=== PATIENT | female | born 1945 | race Caucasian/White ===

== ENCOUNTER → 2016-08-25 | Outpatient (REF) | payer MEDICARE, OTHER ==
[~2016-08-25] MED LIST: /AMLO25TA PO; /CLON2TA PO; ASPI81TA85 PO; ATEN50TA2 PO; CLOP75TA2 PO; CODCAP PO; DIOV40TA PO; IMDU30TA PO; LABE10TAB PO; LIPI20TA PO; LOPR50TA PO; TOPR50TA PO; TYLE325T5 PO; ZEST10TA4 PO; [UNRECOGNIZED DRUG - CODE] PO
[2016-08-25 12:21] LABS: BASO % 0.7 % (0.0-1.0); EOS # 0.1 K/mm3 (0.0-0.50); LARGE UNSTAINED CELL # 0.1 K/mm3 (0.0-0.4); LARGE UNSTAINED CELL % 1.6 % (0.0-4.0); LYMPH # 1.7 K/mm3 (1.5-4.5); LYMPH % 24.1 % (24.0-44.0); MEAN CORPUSCULAR HEMOGLOBIN 29.3 pg (27.0-33.0); MEAN CORPUSCULAR HGB CONC 33.7 g/dl (32.0-36.5); MEAN CORPUSCULAR VOLUME 87.1 fl (80.0-96.0); MONO # 0.3 K/mm3 (0.0-0.8); MONO % 4.7 % (0.0-5.0); NEUTROPHILS # 4.4 K/mm3 (1.8-7.7); NEUTROPHILS % 66.9 % (36.0-66.0); PLATELET COUNT, AUTOMATED 261 k/mm3 (150-450); RED CELL DISTRIBUTION WIDTH 13.4 % (11.5-14.5); WHITE BLOOD COUNT 6.6 K/mm3 (4.0-10.0)
[2016-08-25 12:42] LABS: ALBUMIN 3.9 GM/DL (3.2-5.2); ALBUMIN/GLOBULIN RATIO 1.15 (1.00-1.93); BILIRUBIN,TOTAL 0.7 MG/DL (0.2-1.0); CALCIUM LEVEL 8.8 MG/DL (8.8-10.2); CREATININE FOR GFR 1.01 MG/DL (0.55-1.02); GLOMERULAR FILTRATION RATE 57.7 (>39); POTASSIUM SERUM 4.2 MEQ/L (3.5-5.1); TOTAL PROTEIN 7.3 GM/DL (6.4-8.2)
== END ==
LOC: M LABDRAW1 11:08
PROVIDERS: ATTEND Family Medicine
DX: I10 Essential (primary) hypertension (principal)

== ENCOUNTER → 2017-03-16 | Outpatient (REF) | payer MEDICARE, OTHER ==
[2017-03-16 11:17] LABS: ALBUMIN 3.8 GM/DL (3.2-5.2); ALBUMIN/GLOBULIN RATIO 1.12 (1.00-1.93); BILIRUBIN,DIRECT 0.2 MG/DL (0.0-0.2); BILIRUBIN,TOTAL 0.9 MG/DL (0.2-1.0); TOTAL PROTEIN 7.2 GM/DL (6.4-8.2)
== END ==
LOC: M LABDRAW1 10:26
PROVIDERS: ATTEND Family Medicine
DX: E78.2 Mixed hyperlipidemia (principal)

== ENCOUNTER → 2017-06-06 | Outpatient (REF) | payer MEDICARE, OTHER ==
[2017-06-06 12:25] LABS: ALBUMIN/GLOBULIN RATIO 1.33 (1.00-1.93); ALKALINE PHOSPHATASE 88 U/L (45-117); ALT/SGPT 23 U/L (12-78); AST/SGOT 18 U/L (7-37); BILIRUBIN,DIRECT 0.2 MG/DL (0.0-0.2); BILIRUBIN,TOTAL 0.9 MG/DL (0.2-1.0); CHOLESTEROL LEVEL 240 MG/DL (<200); CHOLESTEROL RISK RATIO 5.106 (<5); HDL CHOLESTEROL 47 MG/DL (>40); NON-HDL-C 193 MG/DL; TRIGLYCERIDES LEVEL 165 MG/DL (<150)
== END ==
LOC: M LABDRAW1 11:51
DX: E78.2 Mixed hyperlipidemia (principal)
CPT/HCPCS: 80076

== ENCOUNTER 2017-10-16 21:41 | Inpatient (IN) | payer MEDICARE, OTHER ==
[2017-10-16 22:09] LABS: BASO % 0.3 % (0.0-1.0); EOS # 0.1 10^3/uL (0.0-0.50); EOS % 0.8 % (0.0-3.0); HEMOGLOBIN 14.9 g/dl (12.0-15.5); IMMATURE GRANULOCYTE % 0.4 % (0-3.0); LYMPH # 2.7 10^3/uL (1.5-4.5); LYMPH % 23.9 % (24.0-44.0); MEAN CORPUSCULAR HEMOGLOBIN 28.9 pg (27.0-33.0); MEAN CORPUSCULAR HGB CONC 33.9 g/dl (32.0-36.5); MEAN CORPUSCULAR VOLUME 85.3 fl (80.0-96.0); MONO # 0.5 10^3/uL (0.0-0.8); MONO % 4.6 % (0.0-5.0); PLATELET COUNT, AUTOMATED 295 10^3/uL (150-450); RED BLOOD COUNT 5.16 10^6/uL (4.00-5.40); RED CELL DISTRIBUTION WIDTH 13.4 % (11.5-14.5); WHITE BLOOD COUNT 11.4 10^3/uL (4.0-10.0)
[2017-10-16] MEDS: LABETALOL HCL 100 MG/20 ML VIAL IV ×2 (22:33→23:41)
[2017-10-16 22:34] LABS: ANION GAP 7 MEQ/L (8-16); BLOOD UREA NITROGEN 19 MG/DL (7-18); CALCIUM LEVEL 9.1 MG/DL (8.8-10.2); CARBON DIOXIDE LEVEL 29 MEQ/L (21-32); CHLORIDE LEVEL 106 MEQ/L (98-107); CK-MB VALUE MASS 1.7 NG/ML (<3.6); CPK CREATINE PHOSPHOKINASE 85 U/L (26-192); CREATININE FOR GFR 1.13 MG/DL (0.55-1.30); GLOMERULAR FILTRATION RATE 50.5 (>39); GLUCOSE, FASTING 141 MG/DL (70-100); POTASSIUM SERUM 3.8 MEQ/L (3.5-5.1); SODIUM LEVEL 142 MEQ/L (136-145); TROPONIN I < 0.02 NG/ML (< 0.10)
[2017-10-16 22:43] LABS: INR 0.83; PROTHROMBIN TIME 11.5 SECONDS (12.1-14.4)
[2017-10-16 22:44] LABS: PARTIAL THROMBOPLASTIN TIME 23.6 SECONDS (25.4-37.6)
[2017-10-16] MEDS: NITROGLYCERIN 2% OINT 1 GM *U/D* PKT TOP (22:45)
[2017-10-16] MEDS ORDERED: ACETAMINOPHEN 325 MG TAB As Ordered (22:46)
[2017-10-16 22:49] LABS: ALBUMIN 4.2 GM/DL (3.2-5.2); ALBUMIN/GLOBULIN RATIO 1.24 (1.00-1.93); ALKALINE PHOSPHATASE 100 U/L (45-117); ALT/SGPT 37 U/L (12-78); AST/SGOT 26 U/L (7-37); BILIRUBIN,DIRECT 0.1 MG/DL (0.0-0.2); BILIRUBIN,TOTAL 0.4 MG/DL (0.2-1.0); TOTAL PROTEIN 7.6 GM/DL (6.4-8.2)
[2017-10-16] MEDS: MORPHINE 2 MG/ML 1ML SYRINGE (J2270) IV (23:38)
[2017-10-16] MEDS: ONDANSETRON 4MG/2ML VIAL (J2405) IV (23:39)
[2017-10-17] MEDS ORDERED: ISOVUE-370 76% 100ML VIAL (Q9967) As Ordered (00:04)
[2017-10-17] MEDS: MORPHINE 4 MG/ML 1ML VIAL/SYRINGE (J2270) IV ×2 (00:15→06:00)
[2017-10-17] MEDS: ASPIRIN 81 MG CHEW TABLET PO ×2 (01:43→03:45)
[2017-10-17 01:46] LABS: CK-MB VALUE MASS 1.8 NG/ML (<3.6); CPK CREATINE PHOSPHOKINASE 77 U/L (26-192); MB/CK RELATIVE INDEX 2.33 (< OR =4); TROPONIN I 0.02 NG/ML (< 0.10)
[2017-10-17] MEDS: hydrALAZINE INJ 20 MG/ML VIAL IV (02:26)
[2017-10-17] MEDS: niCARdipine IV 40 MG in APPROPRIATE DILUENT 1 EA IV (05:06)
[2017-10-17 05:31] LABS: HEMATOCRIT 42.1 % (36.0-47.0); HEMOGLOBIN 14.6 g/dl (12.0-15.5); MEAN CORPUSCULAR HGB CONC 34.7 g/dl (32.0-36.5); MEAN CORPUSCULAR VOLUME 83.5 fl (80.0-96.0); PLATELET COUNT, AUTOMATED 284 10^3/uL (150-450); RED BLOOD COUNT 5.04 10^6/uL (4.00-5.40); RED CELL DISTRIBUTION WIDTH 13.4 % (11.5-14.5); WHITE BLOOD COUNT 17.6 10^3/uL (4.0-10.0)
[2017-10-17] MEDS: DILUENT IV (05:40)
[2017-10-17] MEDS: NITROPRUSSIDE SODIUM IV (05:40)
[2017-10-17 05:58] LABS: ALBUMIN 4.1 GM/DL (3.2-5.2); ALBUMIN/GLOBULIN RATIO 1.17 (1.00-1.93); ALKALINE PHOSPHATASE 100 U/L (45-117); ALT/SGPT 35 U/L (12-78); ANION GAP 13 MEQ/L (8-16); AST/SGOT 26 U/L (7-37); BILIRUBIN,TOTAL 0.5 MG/DL (0.2-1.0); BLOOD UREA NITROGEN 18 MG/DL (7-18); CALCIUM LEVEL 8.3 MG/DL (8.8-10.2); CARBON DIOXIDE LEVEL 22 MEQ/L (21-32); CHLORIDE LEVEL 105 MEQ/L (98-107); CREATININE FOR GFR 1.08 MG/DL (0.55-1.30); GLOMERULAR FILTRATION RATE 53.2 (>39); GLUCOSE, FASTING 194 MG/DL (70-100); POTASSIUM SERUM 3.3 MEQ/L (3.5-5.1); SODIUM LEVEL 140 MEQ/L (136-145); TOTAL PROTEIN 7.6 GM/DL (6.4-8.2)
[2017-10-17] MEDS: cloNIDine 0.1 MG TAB PO ×2 (06:00→11:15)
[2017-10-17] MEDS: ALPRAZolam 0.5 MG TAB PO (06:12)
[2017-10-17 07:57] LABS: KETONE, URINE AUTO RFX TRACE mg/dL (NEGATIVE); LEUKOCYTE ESTERASE UR AUTO RFX NEGATIVE (NEGATIVE); MUCUS, URINE RFX SMALL (NEGATIVE); NITRITE, URINE AUTO RFX NEGATIVE (NEGATIVE); RBC, URINE AUTO RFX 2 /HPF (0-3); SPECIFIC GRAVITY UR AUTO RFX 1.011 (1.002-1.035); SQUAM EPITHELIAL CELL UR AURFX 0 /HPF (0-6); WBC, URINE AUTO RFX 3 /HPF (0-3)
[2017-10-17] MEDS ORDERED: CARVedilol 6.25 MG TAB PO (09:00)
[2017-10-17] MEDS: LOSARTAN 50 MG TAB PO ×2 (09:00→09:24)
[2017-10-17] MEDS ORDERED: amLODIPine 10 MG TAB PO (09:00)
[2017-10-17] MEDS: METOPROLOL SUCC (TopROL XL) 50MG **XL** TAB PO (09:24)
[2017-10-17] MEDS: PANTOPRAZOLE 40MG INJ (PROTONIX) (C9113) IV ×2 (09:24→20:29)
[2017-10-17] MEDS: TELMISARTAN 20 MG TAB PO ×2 (11:10→20:29)
[2017-10-17] MEDS: POTASSIUM CHLORIDE 10 MEQ SR TABLET PO (11:15)
[2017-10-17] MEDS: SUCRALFATE 1 GM TAB PO ×3 (11:15→20:29)
[2017-10-17] MEDS: **hydrALAZINE HCL** 25 MG TAB PO ×2 (14:27→21:36)
[2017-10-17] MEDS: NIFEdipine 30 MG XL TAB PO (19:57)
[2017-10-17] MEDS: KETOROLAC 30 MG/ML VIAL (J1885) IV (19:58)
[2017-10-17] MEDS: SIMVASTATIN 20 MG TAB PO (20:29)
[2017-10-17] MEDS: CARVedilol 12.5 MG TAB PO (20:29)
[2017-10-18] MEDS ORDERED: niCARdipine IV 40 MG in APPROPRIATE DILUENT 1 EA IV (01:45)
[2017-10-18] MEDS: **hydrALAZINE HCL** 25 MG TAB PO ×3 (05:55→11:09)
[2017-10-18] MEDS ORDERED: PILL CRUSHER/CUTTER 1 EACH XX (06:45)
[2017-10-18] MEDS: PANTOPRAZOLE 40MG INJ (PROTONIX) (C9113) IV ×2 (08:07→22:40)
[2017-10-18] MEDS: KETOROLAC 30 MG/ML VIAL (J1885) IV (08:07)
[2017-10-18] MEDS: SUCRALFATE 1 GM TAB PO ×4 (08:08→21:00)
[2017-10-18] MEDS: CARVedilol 12.5 MG TAB PO (08:08)
[2017-10-18] MEDS: TELMISARTAN 20 MG TAB PO (08:09)
[2017-10-18] MEDS: APIXABAN 5 MG TAB (ELIQUIS) PO (09:00)
[2017-10-18] MEDS ORDERED: **hydrALAZINE HCL** 25 MG TAB PO ×2 (09:00)
[2017-10-18 09:01] LABS: HEMATOCRIT 40.2 % (36.0-47.0); MEAN CORPUSCULAR HEMOGLOBIN 29.1 pg (27.0-33.0); MEAN CORPUSCULAR HGB CONC 34.8 g/dl (32.0-36.5); MEAN CORPUSCULAR VOLUME 83.6 fl (80.0-96.0); PLATELET COUNT, AUTOMATED 279 10^3/uL (150-450); RED BLOOD COUNT 4.81 10^6/uL (4.00-5.40); RED CELL DISTRIBUTION WIDTH 13.7 % (11.5-14.5); WHITE BLOOD COUNT 25.3 10^3/uL (4.0-10.0)
[2017-10-18 09:05] LABS: ADD MANUAL DIFFER YES; DIFF SLIDE NUMBER 146; POSITIVE DIFF POS FLAG; POSITIVE MORPH POS FLAG
[2017-10-18 09:26] LABS: ALBUMIN 3.6 GM/DL (3.2-5.2); ALKALINE PHOSPHATASE 89 U/L (45-117); ALT/SGPT 64 U/L (12-78); ANION GAP 11 MEQ/L (8-16); AST/SGOT 58 U/L (7-37); BLOOD UREA NITROGEN 27 MG/DL (7-18); C REACTIVE PROTEIN QUANTITATIV 6.57 MG/DL (0.00-0.30); CALCIUM LEVEL 8.4 MG/DL (8.8-10.2); CARBON DIOXIDE LEVEL 19 MEQ/L (21-32); CHLORIDE LEVEL 106 MEQ/L (98-107); CPK CREATINE PHOSPHOKINASE 82 U/L (26-192); CREATININE FOR GFR 1.08 MG/DL (0.55-1.30); GLOMERULAR FILTRATION RATE 53.2 (>39); GLUCOSE, FASTING 156 MG/DL (70-100); MB/CK RELATIVE INDEX 2.43 (< OR =4); POTASSIUM SERUM 3.5 MEQ/L (3.5-5.1); SODIUM LEVEL 136 MEQ/L (136-145); TOTAL PROTEIN 7.2 GM/DL (6.4-8.2); TROPONIN I < 0.02 NG/ML (< 0.10)
[2017-10-18 09:40] LABS: LACTIC ACID SEPSIS PROTOCOL 2.5 MMOL/L (0.4-2.0)
[2017-10-18 09:50] LABS: ERYTHROCYTE SEDIMENTATION RATE 5 mm/hr (0-30)
[2017-10-18 09:59] LABS: BANDS 7 % (< 11); LYMPHOCYTES 9 % (16-52); MONOCYTES 7 % (0-8); NEUTROPHILS 77 % (35-75); PLATELET ESTIMATE NORMAL (NORMAL)
[2017-10-18 10:00] LABS: ANISOCYTOSIS 1+
[2017-10-18 10:03] LABS: BILIRUBIN,TOTAL 1.7 MG/DL (0.2-1.0)
[2017-10-18] MEDS: CIPROFLOXACIN 400 MG in APPROPRIATE DILUENT 1 EA IV (10:16)
[2017-10-18] MEDS: NS 0.45% 1,000 ML IV (10:18)
[2017-10-18] MEDS: METOPROLOL TART 25 MG TABLET PO (11:10)
[2017-10-18] MEDS: metroNIDAZOLE 500 MG in APPROPRIATE DILUENT 1 EA IV (11:40)
[2017-10-18 13:47] LABS: MAGNESIUM LEVEL 2.1 MG/DL (1.8-2.4)
[2017-10-18] MEDS: NS 1,000 ML IV ×3 (14:15→22:42)
[2017-10-18] MEDS: MEROPENEM INJ 1 GM in APPROPRIATE DILUENT 1 EA IV ×2 (15:46→23:27)
[2017-10-18] MEDS: MORPHINE 4 MG/ML 1ML VIAL/SYRINGE (J2270) IV (15:47)
[2017-10-18 16:00] LABS: ANION GAP 9 MEQ/L (8-16); BLOOD UREA NITROGEN 34 MG/DL (7-18); CALCIUM LEVEL 7.3 MG/DL (8.8-10.2); CARBON DIOXIDE LEVEL 19 MEQ/L (21-32); CHLORIDE LEVEL 107 MEQ/L (98-107); GLOMERULAR FILTRATION RATE 39.5 (>39); GLUCOSE, FASTING 94 MG/DL (70-100); POTASSIUM SERUM 3.9 MEQ/L (3.5-5.1); SODIUM LEVEL 135 MEQ/L (136-145)
[2017-10-18] MEDS ORDERED: MEROPENEM INJ 500 MG in APPROPRIATE DILUENT 1 EA IV (16:00)
[2017-10-18] MEDS: READI-CAT 2 PO ×2 (16:29→16:59)
[2017-10-18] MEDS: NS 2,000 ML IV (16:49)
[2017-10-18] MEDS: diphenhydrAMINE INJ 50MG/ML VIAL (J1200) IV (17:37)
[2017-10-18] MEDS: ACETAMINOPHEN TAB 650MG DOSE (2X325MG) PO (17:37)
[2017-10-18] MEDS: dexameTHASONE 20 MG/5 ML VIAL (J1100) IV (17:37)
[2017-10-18] MEDS ORDERED: ISOVUE-370 76% 100ML VIAL (Q9967) As Ordered (17:55)
[2017-10-18] MEDS ORDERED: GLUCOSE 4 GM CHEW TABLET PO (18:30)
[2017-10-18] MEDS ORDERED: DEXTROSE 50% 50 ML SYRINGE IV (18:30)
[2017-10-18] MEDS ORDERED: GLUCAGON FOR INJ 1 MG VIAL (J1610) SC (18:30)
[2017-10-18] MEDS ORDERED: NS 1,000 ML IV (18:30)
[2017-10-18] MEDS ORDERED: PHENYLEPHRINE INJ 10MG/ML VIAL (J2370) As Ordered (19:18)
[2017-10-18] MEDS ORDERED: LIDOCAINE 2% INJ 100 MG/5 ML SDV (FOR ANES.) As Ordered (19:18)
[2017-10-18] MEDS ORDERED: ROCURONIUM BROMIDE 50 MG/5 ML VIAL As Ordered (19:18)
[2017-10-18] MEDS ORDERED: PROPOFOL 200 MG/20 ML VIAL As Ordered (19:18)
[2017-10-18] MEDS ORDERED: SUCCINYLCHOLINE 100 MG/5 ML SYRINGE (J0330) As Ordered (19:19)
[2017-10-18] MEDS ORDERED: fentaNYL 100 MCG/2 ML INJECTION (J3010) As Ordered ×2 (19:23→21:29)
[2017-10-18 19:33] LABS: LACTIC ACID SEPSIS PROTOCOL 1.3 MMOL/L (0.4-2.0); NT-PRO BNP 4397 PG/ML (<125)
[2017-10-18] MEDS ORDERED: GLYCOPYRROLATE INJ 0.2 MG/ML 2 ML VIAL As Ordered ×2 (20:49)
[2017-10-18] MEDS ORDERED: NEOSTIGMINE 10 MG/10 ML VIAL (J2710) As Ordered (20:49)
[2017-10-18] MEDS ORDERED: ONDANSETRON 4MG/2ML VIAL (J2405) As Ordered (20:49)
[2017-10-18] MEDS ORDERED: dexameTHASONE 4 MG/ML 1ML VIAL (J1100) As Ordered (20:49)
[2017-10-18] MEDS: BUPIVACAINE HCL 0.25% 30 ML VIAL As Ordered (20:55)
[2017-10-18] MEDS: BUPIVACAINE LIPOSOME/PF 1.3% 20 ML VIAL (13.3MG/ML)(EXPAREL) As Ordered (20:55)
[2017-10-18] MEDS ORDERED: ENOXAPARIN 40 MG/0.4 ML SYRINGE (J1650) SC (21:00)
[2017-10-18] MEDS: SIMVASTATIN 20 MG TAB PO (21:00)
[2017-10-18] MEDS ORDERED: PROPOFOL 1,000 MG/100 ML VIAL As Ordered (21:21)
[2017-10-18] MEDS: fentaNYL 100 MCG/2 ML INJECTION (J3010) IV ×2 (21:31→21:36)
[2017-10-18] MEDS: LR 1,000 ML IV (21:45)
[2017-10-18] MEDS ORDERED: MORPHINE 10 MG/ML 1ML VIAL (J2270) IV (21:45)
[2017-10-18] MEDS ORDERED: METOCLOPRAMIDE INJ 10MG/2ML VIAL (J2765) IV (21:45)
[2017-10-18] MEDS ORDERED: ONDANSETRON 4MG/2ML VIAL (J2405) IV (21:45)
[2017-10-18] MEDS ORDERED: PROPOFOL 1,000 MG/100 ML VIAL IV (21:45)
[2017-10-18] MEDS ORDERED: MIDAZOLAM INJ 2 MG/2 ML VIAL (J2250) IV (22:30)
[2017-10-18] MEDS: PROPOFOL 1,000 MG in APPROPRIATE DILUENT 1 EA IV (22:43)
[2017-10-18 23:19] LABS: ABG BASE EXCESS -6.6 (-2.0-2.0); ABG HCO3 18.5 MEQ/L (22.0-26.0); ABG O2 SATURATION 97.8 % (95.0-99.0); ABG PARTIAL PRESSURE CO2 35.7 mmHg (35.0-45.0); ABG STANDARD HCO3 19.1 MEQ/L (22.0-26.0); ABG TOTAL CO2 19.6 MEQ/L (23.0-31.0); ABG pH (ARTERIAL) 7.332 UNITS (7.350-7.450)
[2017-10-18] MEDS: CHLORHEXIDINE ORAL RINSE 0.12%/15ML 120ML BOTTLE MT (23:27)
[2017-10-19 01:01] LABS: ALBUMIN 2.4 GM/DL (3.2-5.2); ALBUMIN/GLOBULIN RATIO 0.77 (1.00-1.93); ALKALINE PHOSPHATASE 61 U/L (45-117); ALT/SGPT 40 U/L (12-78); ANION GAP 8 MEQ/L (8-16); AST/SGOT 30 U/L (7-37); BILIRUBIN,TOTAL 1.4 MG/DL (0.2-1.0); BLOOD UREA NITROGEN 31 MG/DL (7-18); CALCIUM LEVEL 7.1 MG/DL (8.8-10.2); CARBON DIOXIDE LEVEL 20 MEQ/L (21-32); CHLORIDE LEVEL 107 MEQ/L (98-107); CK-MB VALUE MASS 4.2 NG/ML (<3.6); CPK CREATINE PHOSPHOKINASE 150 U/L (26-192); CREATININE FOR GFR 1.28 MG/DL (0.55-1.30); GLOMERULAR FILTRATION RATE 43.8 (>39); GLUCOSE, FASTING 131 MG/DL (70-100); POTASSIUM SERUM 3.7 MEQ/L (3.5-5.1); SODIUM LEVEL 135 MEQ/L (136-145); TOTAL PROTEIN 5.5 GM/DL (6.4-8.2); TROPONIN I 0.03 NG/ML (< 0.10)
[2017-10-19 01:01] LABS: NT-PRO BNP 4154 PG/ML (<125)
[2017-10-19 01:05] LABS: ERYTHROCYTE SEDIMENTATION RATE 13 mm/hr (0-30)
[2017-10-19] MEDS: PROPOFOL 1,000 MG in APPROPRIATE DILUENT 1 EA IV (04:04)
[2017-10-19] MEDS: NS 1,000 ML IV ×2 (04:51→10:56)
[2017-10-19 05:36] LABS: HEMATOCRIT 37.3 % (36.0-47.0); HEMOGLOBIN 12.6 g/dl (12.0-15.5); MEAN CORPUSCULAR HEMOGLOBIN 29.2 pg (27.0-33.0); MEAN CORPUSCULAR HGB CONC 33.8 g/dl (32.0-36.5); MEAN CORPUSCULAR VOLUME 86.3 fl (80.0-96.0); PLATELET COUNT, AUTOMATED 213 10^3/uL (150-450); RED BLOOD COUNT 4.32 10^6/uL (4.00-5.40); RED CELL DISTRIBUTION WIDTH 14.3 % (11.5-14.5); WHITE BLOOD COUNT 20.9 10^3/uL (4.0-10.0)
[2017-10-19 05:46] LABS: ADD MANUAL DIFFER YES; DIFF SLIDE NUMBER 80; POSITIVE MORPH POS FLAG
[2017-10-19 05:51] LABS: ANION GAP 9 MEQ/L (8-16); BLOOD UREA NITROGEN 26 MG/DL (7-18); CALCIUM LEVEL 7.5 MG/DL (8.8-10.2); CARBON DIOXIDE LEVEL 20 MEQ/L (21-32); CHLORIDE LEVEL 110 MEQ/L (98-107); CREATININE FOR GFR 1.16 MG/DL (0.55-1.30); GLUCOSE, FASTING 136 MG/DL (70-100); POTASSIUM SERUM 3.8 MEQ/L (3.5-5.1); SODIUM LEVEL 139 MEQ/L (136-145)
[2017-10-19] MEDS: MEROPENEM INJ 1 GM in APPROPRIATE DILUENT 1 EA IV ×3 (06:09→22:13)
[2017-10-19 06:32] LABS: BANDS 8 % (< 11); LYMPHOCYTES 4 % (16-52); MONOCYTES 2 % (0-8); NEUTROPHILS 86 % (35-75); PLATELET ESTIMATE NORMAL (NORMAL)
[2017-10-19] MEDS: SUCRALFATE 1 GM TAB PO ×4 (08:53→20:31)
[2017-10-19] MEDS: PANTOPRAZOLE 40MG INJ (PROTONIX) (C9113) IV ×2 (08:54→20:31)
[2017-10-19] MEDS: CHLORHEXIDINE ORAL RINSE 0.12%/15ML 120ML BOTTLE MT (08:54)
[2017-10-19] MEDS: HEPARIN SOD (PORCINE) 5000 UNITS/ML VIAL SQ ×2 (08:54→20:31)
[2017-10-19] MEDS: METOPROLOL 5 MG/5 ML VIAL IV ×5 (08:54→17:46)
[2017-10-19] MEDS: hydrALAZINE INJ 20 MG/ML VIAL IV ×4 (10:28→22:13)
[2017-10-19] MEDS: MORPHINE 4 MG/ML 1ML VIAL/SYRINGE (J2270) IV ×2 (12:56→18:43)
[2017-10-19] MEDS: SIMVASTATIN 20 MG TAB PO (20:31)
[2017-10-19 23:24] LABS: BEDSIDE GLUCOSE 126 MG/DL (83-110)
[2017-10-20] MEDS: METOPROLOL 5 MG/5 ML VIAL IV ×2 (00:25→05:24)
[2017-10-20] MEDS: hydrALAZINE INJ 20 MG/ML VIAL IV ×6 (02:42→22:59)
[2017-10-20 05:12] LABS: BASO % 0.1 % (0.0-1.0); HEMATOCRIT 34.8 % (36.0-47.0); IMMATURE GRANULOCYTE % 0.7 % (0-3.0); LYMPH # 0.8 10^3/uL (1.5-4.5); LYMPH % 3.7 % (24.0-44.0); MEAN CORPUSCULAR HEMOGLOBIN 29.2 pg (27.0-33.0); MEAN CORPUSCULAR HGB CONC 34.5 g/dl (32.0-36.5); MEAN CORPUSCULAR VOLUME 84.7 fl (80.0-96.0); MONO % 4.8 % (0.0-5.0); NEUTROPHILS # 19.6 10^3/uL (1.8-7.7); NEUTROPHILS % 90.7 % (36.0-66.0); PLATELET COUNT, AUTOMATED 248 10^3/uL (150-450); RED BLOOD COUNT 4.11 10^6/uL (4.00-5.40); RED CELL DISTRIBUTION WIDTH 14.6 % (11.5-14.5); WHITE BLOOD COUNT 21.7 10^3/uL (4.0-10.0)
[2017-10-20] MEDS: ACETAMINOPHEN TAB 650MG DOSE (2X325MG) PO ×5 (05:25→23:10)
[2017-10-20 05:34] LABS: ANION GAP 8 MEQ/L (8-16); BLOOD UREA NITROGEN 26 MG/DL (7-18); CALCIUM LEVEL 7.9 MG/DL (8.8-10.2); CARBON DIOXIDE LEVEL 22 MEQ/L (21-32); CHLORIDE LEVEL 113 MEQ/L (98-107); CREATININE FOR GFR 0.77 MG/DL (0.55-1.30); GLOMERULAR FILTRATION RATE > 60.0 (>39); GLUCOSE, FASTING 107 MG/DL (70-100); POTASSIUM SERUM 3.5 MEQ/L (3.5-5.1); SODIUM LEVEL 143 MEQ/L (136-145)
[2017-10-20 06:04] LABS: KETONE, URINE AUTO RFX NEGATIVE (NEGATIVE); LEUKOCYTE ESTERASE UR AUTO RFX NEGATIVE (NEGATIVE); MUCUS, URINE RFX SMALL (NEGATIVE); NITRITE, URINE AUTO RFX NEGATIVE (NEGATIVE); RBC, URINE AUTO RFX 16 /HPF (0-3); SPECIFIC GRAVITY UR AUTO RFX 1.019 (1.002-1.035); SQUAM EPITHELIAL CELL UR AURFX 0 /HPF (0-6); WBC, URINE AUTO RFX 2 /HPF (0-3)
[2017-10-20] MEDS: MEROPENEM INJ 1 GM in APPROPRIATE DILUENT 1 EA IV ×3 (06:28→22:59)
[2017-10-20] MEDS: ATENOLOL 25 MG TAB PO ×2 (08:20→12:22)
[2017-10-20] MEDS: HEPARIN SOD (PORCINE) 5000 UNITS/ML VIAL SQ ×2 (08:21→20:02)
[2017-10-20] MEDS: PANTOPRAZOLE 40MG INJ (PROTONIX) (C9113) IV ×2 (08:21→20:02)
[2017-10-20] MEDS: SUCRALFATE 1 GM TAB PO ×4 (08:21→20:01)
[2017-10-20] MEDS: ALVIMOPAN 12 MG CAPSULE (ENTEREG) PO ×2 (09:24→20:01)
[2017-10-20] MEDS: NS 1,000 ML IV (09:25)
[2017-10-20] MEDS: SIMVASTATIN 20 MG TAB PO (20:01)
[2017-10-20] MEDS: SENNA 8.6 MG TAB (SENOKOT) PO (22:58)
[2017-10-20] MEDS: CHLORASEPTIC SPRAY MT (22:58)
[2017-10-20] MEDS: DOCUSATE SOD LIQ 100MG/10ML UDC GT (22:58)
[2017-10-20] MEDS: NAPROXEN 250 MG TAB PO (22:59)
[2017-10-21] MEDS: hydrALAZINE INJ 20 MG/ML VIAL IV ×6 (04:01→22:46)
[2017-10-21 04:50] LABS: BASO % 0.1 % (0.0-1.0); EOS % 0.2 % (0.0-3.0); HEMATOCRIT 34.5 % (36.0-47.0); HEMOGLOBIN 11.9 g/dl (12.0-15.5); IMMATURE GRANULOCYTE % 0.7 % (0-3.0); LYMPH # 1.7 10^3/uL (1.5-4.5); LYMPH % 13.4 % (24.0-44.0); MEAN CORPUSCULAR HEMOGLOBIN 29.1 pg (27.0-33.0); MEAN CORPUSCULAR HGB CONC 34.5 g/dl (32.0-36.5); MEAN CORPUSCULAR VOLUME 84.4 fl (80.0-96.0); MONO # 0.8 10^3/uL (0.0-0.8); NEUTROPHILS # 10.1 10^3/uL (1.8-7.7); NEUTROPHILS % 79.6 % (36.0-66.0); PLATELET COUNT, AUTOMATED 265 10^3/uL (150-450); RED BLOOD COUNT 4.09 10^6/uL (4.00-5.40); RED CELL DISTRIBUTION WIDTH 14.4 % (11.5-14.5); WHITE BLOOD COUNT 12.6 10^3/uL (4.0-10.0)
[2017-10-21 05:22] LABS: ANION GAP 9 MEQ/L (8-16); BLOOD UREA NITROGEN 27 MG/DL (7-18); CALCIUM LEVEL 7.7 MG/DL (8.8-10.2); CARBON DIOXIDE LEVEL 22 MEQ/L (21-32); CHLORIDE LEVEL 112 MEQ/L (98-107); CREATININE FOR GFR 0.79 MG/DL (0.55-1.30); GLOMERULAR FILTRATION RATE > 60.0 (>39); GLUCOSE, FASTING 90 MG/DL (70-100); POTASSIUM SERUM 3.4 MEQ/L (3.5-5.1); SODIUM LEVEL 143 MEQ/L (136-145)
[2017-10-21] MEDS: MEROPENEM INJ 1 GM in APPROPRIATE DILUENT 1 EA IV ×3 (06:06→22:49)
[2017-10-21] MEDS: PANTOPRAZOLE 40MG INJ (PROTONIX) (C9113) IV ×2 (08:16→20:37)
[2017-10-21] MEDS: HEPARIN SOD (PORCINE) 5000 UNITS/ML VIAL SQ ×2 (08:16→20:37)
[2017-10-21] MEDS: ATENOLOL 50 MG TAB PO (08:17)
[2017-10-21] MEDS: SUCRALFATE 1 GM TAB PO ×4 (08:17→20:36)
[2017-10-21] MEDS: POTASSIUM CHLORIDE 10 MEQ SR TABLET PO (08:18)
[2017-10-21] MEDS: ALVIMOPAN 12 MG CAPSULE (ENTEREG) PO ×2 (08:19→20:36)
[2017-10-21] MEDS: CHLORASEPTIC SPRAY MT ×2 (08:21→17:39)
[2017-10-21] MEDS ORDERED: ATENOLOL 25 MG TAB PO (09:00)
[2017-10-21 09:24] LABS: NT-PRO BNP 7788 PG/ML (<125)
[2017-10-21] MEDS: FUROSEMIDE 20 MG/2 ML VIAL (J1940) IV (10:20)
[2017-10-21] MEDS: ATENOLOL 25 MG TAB PO (10:20)
[2017-10-21] MEDS: KCL 10MEQ IN D5/0.45NS 1000ML 1,000 ML IV (10:21)
[2017-10-21 17:15] LABS: BEDSIDE GLUCOSE 91 MG/DL (83-110)
[2017-10-21] MEDS: ALPRAZolam 0.5 MG TAB PO (20:36)
[2017-10-21] MEDS: SIMVASTATIN 20 MG TAB PO (20:37)
[2017-10-21] MEDS: DOCUSATE SOD LIQ 100MG/10ML UDC GT (20:37)
[2017-10-21] MEDS: ACETAMINOPHEN TAB 650MG DOSE (2X325MG) PO (20:37)
[2017-10-21] MEDS: SENNA 8.6 MG TAB (SENOKOT) PO (20:37)
[2017-10-22] MEDS: hydrALAZINE INJ 20 MG/ML VIAL IV ×7 (01:44→23:00)
[2017-10-22 04:40] LABS: BASO % 0.3 % (0.0-1.0); EOS # 0.2 10^3/uL (0.0-0.50); EOS % 2.3 % (0.0-3.0); IMMATURE GRANULOCYTE % 2.5 % (0-3.0); LYMPH # 1.4 10^3/uL (1.5-4.5); LYMPH % 17.1 % (24.0-44.0); MEAN CORPUSCULAR HEMOGLOBIN 28.6 pg (27.0-33.0); MEAN CORPUSCULAR HGB CONC 34.3 g/dl (32.0-36.5); MEAN CORPUSCULAR VOLUME 83.5 fl (80.0-96.0); MONO # 0.8 10^3/uL (0.0-0.8); MONO % 10.2 % (0.0-5.0); NEUTROPHILS # 5.4 10^3/uL (1.8-7.7); NEUTROPHILS % 67.6 % (36.0-66.0); PLATELET COUNT, AUTOMATED 266 10^3/uL (150-450); RED BLOOD COUNT 4.19 10^6/uL (4.00-5.40); RED CELL DISTRIBUTION WIDTH 14.1 % (11.5-14.5)
[2017-10-22 04:59] LABS: ANION GAP 8 MEQ/L (8-16); BLOOD UREA NITROGEN 21 MG/DL (7-18); CALCIUM LEVEL 7.7 MG/DL (8.8-10.2); CARBON DIOXIDE LEVEL 24 MEQ/L (21-32); CHLORIDE LEVEL 109 MEQ/L (98-107); CREATININE FOR GFR 0.62 MG/DL (0.55-1.30); GLOMERULAR FILTRATION RATE > 60.0 (>39); GLUCOSE, FASTING 103 MG/DL (70-100); POTASSIUM SERUM 3.3 MEQ/L (3.5-5.1); SODIUM LEVEL 141 MEQ/L (136-145)
[2017-10-22] MEDS: MEROPENEM INJ 1 GM in APPROPRIATE DILUENT 1 EA IV ×3 (06:12→23:00)
[2017-10-22 08:07] LABS: MAGNESIUM LEVEL 2.1 MG/DL (1.8-2.4)
[2017-10-22] MEDS: POTASSIUM CHLORIDE 10 MEQ SR TABLET PO (08:50)
[2017-10-22] MEDS: HEPARIN SOD (PORCINE) 5000 UNITS/ML VIAL SQ (08:50)
[2017-10-22] MEDS: PANTOPRAZOLE 40MG INJ (PROTONIX) (C9113) IV ×2 (08:50→20:19)
[2017-10-22] MEDS: ATENOLOL 25 MG TAB PO (08:51)
[2017-10-22] MEDS: SUCRALFATE 1 GM TAB PO ×4 (08:51→20:19)
[2017-10-22] MEDS: ALVIMOPAN 12 MG CAPSULE (ENTEREG) PO ×2 (08:51→20:19)
[2017-10-22] MEDS: ISOSORBIDE DIN. (ISORDIL) 30 MG TAB PO ×2 (08:51→20:19)
[2017-10-22] MEDS: KCL 10MEQ IN D5/0.45NS 1000ML 1,000 ML IV (08:54)
[2017-10-22] MEDS: ACETAMINOPHEN TAB 650MG DOSE (2X325MG) PO ×2 (12:30→18:08)
[2017-10-22] MEDS: HEPARIN SOD (PORCINE) 5000 UNITS/ML VIAL IV ×2 (14:00→21:36)
[2017-10-22 14:22] LABS: PARTIAL THROMBOPLASTIN TIME 25.9 SECONDS (25.4-37.6)
[2017-10-22 14:34] LABS: LACTIC ACID SEPSIS PROTOCOL 1.3 MMOL/L (0.4-2.0)
[2017-10-22] MEDS: HEPARIN DRIP 25,000 UNITS in APPROPRIATE DILUENT 1 EA IV (14:43)
[2017-10-22] MEDS: DOCUSATE SOD LIQ 100MG/10ML UDC GT (18:07)
[2017-10-22] MEDS: SENNA 8.6 MG TAB (SENOKOT) PO (18:07)
[2017-10-22] MEDS: CHLORASEPTIC SPRAY MT (18:42)
[2017-10-22] MEDS: SIMVASTATIN 20 MG TAB PO (20:19)
[2017-10-22 21:11] LABS: PARTIAL THROMBOPLASTIN TIME 61.2 SECONDS (25.4-37.6)
[2017-10-23 00:15] LABS: BEDSIDE GLUCOSE 128 MG/DL (83-110)
[2017-10-23] MEDS: hydrALAZINE INJ 20 MG/ML VIAL IV ×2 (02:49→06:13)
[2017-10-23] MEDS: KCL 10MEQ IN D5/0.45NS 1000ML 1,000 ML IV (03:07)
[2017-10-23 04:06] LABS: HEMATOCRIT 34.4 % (36.0-47.0); HEMOGLOBIN 11.7 g/dl (12.0-15.5); MEAN CORPUSCULAR HEMOGLOBIN 28.5 pg (27.0-33.0); MEAN CORPUSCULAR VOLUME 83.7 fl (80.0-96.0); PLATELET COUNT, AUTOMATED 281 10^3/uL (150-450); RED BLOOD COUNT 4.11 10^6/uL (4.00-5.40); RED CELL DISTRIBUTION WIDTH 13.7 % (11.5-14.5); WHITE BLOOD COUNT 8.7 10^3/uL (4.0-10.0)
[2017-10-23 04:13] LABS: ADD MANUAL DIFFER YES; DIFF SLIDE NUMBER 20; POS COUNT POS FLAG; POSITIVE MORPH POS FLAG
[2017-10-23 04:17] LABS: INR 1.05; PROTHROMBIN TIME 13.8 SECONDS (12.1-14.4)
[2017-10-23 04:19] LABS: PARTIAL THROMBOPLASTIN TIME 100.8 SECONDS (25.4-37.6)
[2017-10-23 04:24] LABS: ANION GAP 8 MEQ/L (8-16); BLOOD UREA NITROGEN 15 MG/DL (7-18); CALCIUM LEVEL 7.6 MG/DL (8.8-10.2); CARBON DIOXIDE LEVEL 25 MEQ/L (21-32); CHLORIDE LEVEL 108 MEQ/L (98-107); CREATININE FOR GFR 0.58 MG/DL (0.55-1.30); GLOMERULAR FILTRATION RATE > 60.0 (>39); GLUCOSE, FASTING 119 MG/DL (70-100); POTASSIUM SERUM 3.4 MEQ/L (3.5-5.1); SODIUM LEVEL 141 MEQ/L (136-145)
[2017-10-23 04:31] LABS: EOSINOPHILS 3 % (0-5); LYMPHOCYTES 19 % (16-52); METAMYELOCYTES 2 % (0-0); MONOCYTES 9 % (0-8); NEUTROPHILS 67 % (35-75); PLATELET ESTIMATE NORMAL (NORMAL)
[2017-10-23] MEDS: MEROPENEM INJ 1 GM in APPROPRIATE DILUENT 1 EA IV ×3 (06:13→23:30)
[2017-10-23 06:30] LABS: BEDSIDE GLUCOSE 128 MG/DL (83-110)
[2017-10-23] MEDS: ATENOLOL 50 MG TAB PO ×2 (07:47→20:11)
[2017-10-23] MEDS: POTASSIUM CHLORIDE 10 MEQ SR TABLET PO (07:47)
[2017-10-23] MEDS: ALVIMOPAN 12 MG CAPSULE (ENTEREG) PO (07:48)
[2017-10-23] MEDS: SUCRALFATE 1 GM TAB PO ×4 (07:48→20:11)
[2017-10-23] MEDS: PANTOPRAZOLE 40MG INJ (PROTONIX) (C9113) IV (07:49)
[2017-10-23] MEDS: HEPARIN DRIP 25,000 UNITS in APPROPRIATE DILUENT 1 EA IV (07:50)
[2017-10-23] MEDS ORDERED: hydrALAZINE INJ 20 MG/ML VIAL IV (09:00)
[2017-10-23] MEDS: ISOSORBIDE DIN. (ISORDIL) 30 MG TAB PO ×3 (09:17→17:32)
[2017-10-23 10:20] LABS: PARTIAL THROMBOPLASTIN TIME 109.7 SECONDS (25.4-37.6)
[2017-10-23] MEDS ORDERED: DOCUSATE SOD LIQ 100MG/10ML UDC PO (10:30)
[2017-10-23 16:48] LABS: PARTIAL THROMBOPLASTIN TIME 74.4 SECONDS (25.4-37.6)
[2017-10-23] MEDS: WARFARIN SOD 5 MG TAB PO (17:32)
[2017-10-23] MEDS: SIMVASTATIN 20 MG TAB PO (20:10)
[2017-10-23] MEDS: PANTOPRAZOLE 40MG TAB (PROTONIX) PO (20:11)
[2017-10-23 22:53] LABS: PARTIAL THROMBOPLASTIN TIME 90.1 SECONDS (25.4-37.6)
[2017-10-24] MEDS: HEPARIN DRIP 25,000 UNITS in APPROPRIATE DILUENT 1 EA IV ×2 (01:11→21:07)
[2017-10-24 04:50] LABS: INR 1.07; PROTHROMBIN TIME 14.1 SECONDS (12.1-14.4)
[2017-10-24 04:52] LABS: PARTIAL THROMBOPLASTIN TIME 81.3 SECONDS (25.4-37.6)
[2017-10-24 05:51] LABS: BEDSIDE GLUCOSE 111 MG/DL (83-110)
[2017-10-24] MEDS: MEROPENEM INJ 1 GM in APPROPRIATE DILUENT 1 EA IV ×3 (06:10→22:07)
[2017-10-24] MEDS: ISOSORBIDE DIN. (ISORDIL) 30 MG TAB PO ×5 (06:11→23:53)
[2017-10-24] MEDS: SUCRALFATE 1 GM TAB PO ×4 (08:13→20:49)
[2017-10-24] MEDS: PANTOPRAZOLE 40MG TAB (PROTONIX) PO ×2 (08:13→20:49)
[2017-10-24] MEDS: ATENOLOL 50 MG TAB PO ×2 (09:00→20:45)
[2017-10-24 15:35] LABS: ANION GAP 10 MEQ/L (8-16); BLOOD UREA NITROGEN 18 MG/DL (7-18); CALCIUM LEVEL 8.2 MG/DL (8.8-10.2); CARBON DIOXIDE LEVEL 26 MEQ/L (21-32); CHLORIDE LEVEL 108 MEQ/L (98-107); CREATININE FOR GFR 0.68 MG/DL (0.55-1.30); GLOMERULAR FILTRATION RATE > 60.0 (>39); GLUCOSE, FASTING 100 MG/DL (70-100); MAGNESIUM LEVEL 1.8 MG/DL (1.8-2.4); POTASSIUM SERUM 3.7 MEQ/L (3.5-5.1); SODIUM LEVEL 144 MEQ/L (136-145)
[2017-10-24 15:40] LABS: HEMATOCRIT 29.5 % (36.0-47.0); HEMOGLOBIN 9.9 g/dl (12.0-15.5); MEAN CORPUSCULAR HGB CONC 33.6 g/dl (32.0-36.5); MEAN CORPUSCULAR VOLUME 86.5 fl (80.0-96.0); PLATELET COUNT, AUTOMATED 287 10^3/uL (150-450); RED BLOOD COUNT 3.41 10^6/uL (4.00-5.40); RED CELL DISTRIBUTION WIDTH 14.2 % (11.5-14.5); WHITE BLOOD COUNT 10.8 10^3/uL (4.0-10.0)
[2017-10-24 15:41] LABS: ADD MANUAL DIFFER YES; DIFF SLIDE NUMBER 321; POS COUNT POS FLAG; POSITIVE MORPH POS FLAG
[2017-10-24 17:33] LABS: BANDS 6 % (< 11); LYMPHOCYTES 15 % (16-52); METAMYELOCYTES 2 % (0-0); MONOCYTES 6 % (0-8); NEUTROPHILS 71 % (35-75)
[2017-10-24 17:34] LABS: PLATELET ESTIMATE NORMAL (NORMAL)
[2017-10-24] MEDS: WARFARIN SOD 5 MG TAB PO (17:43)
[2017-10-24] MEDS: SIMVASTATIN 20 MG TAB PO (20:48)
[2017-10-25] MEDS: MEROPENEM INJ 1 GM in APPROPRIATE DILUENT 1 EA IV ×3 (06:19→22:19)
[2017-10-25] MEDS: ISOSORBIDE DIN. (ISORDIL) 30 MG TAB PO ×4 (06:19→23:17)
[2017-10-25] MEDS: ACETAMINOPHEN TAB 650MG DOSE (2X325MG) PO ×3 (06:39→21:19)
[2017-10-25 06:56] LABS: BASO % 0.1 % (0.0-1.0); EOS # 0.2 10^3/uL (0.0-0.50); EOS % 1.5 % (0.0-3.0); HEMATOCRIT 25.4 % (36.0-47.0); HEMOGLOBIN 8.6 g/dl (12.0-15.5); IMMATURE GRANULOCYTE % 4.7 % (0-3.0); LYMPH # 1.8 10^3/uL (1.5-4.5); LYMPH % 16.4 % (24.0-44.0); MEAN CORPUSCULAR HEMOGLOBIN 28.9 pg (27.0-33.0); MEAN CORPUSCULAR HGB CONC 33.9 g/dl (32.0-36.5); MEAN CORPUSCULAR VOLUME 85.2 fl (80.0-96.0); MONO # 0.7 10^3/uL (0.0-0.8); MONO % 6.1 % (0.0-5.0); NEUTROPHILS # 7.7 10^3/uL (1.8-7.7); NEUTROPHILS % 71.2 % (36.0-66.0); PLATELET COUNT, AUTOMATED 275 10^3/uL (150-450); RED BLOOD COUNT 2.98 10^6/uL (4.00-5.40); RED CELL DISTRIBUTION WIDTH 14.1 % (11.5-14.5); WHITE BLOOD COUNT 10.9 10^3/uL (4.0-10.0)
[2017-10-25 07:07] LABS: INR 1.59; PROTHROMBIN TIME 19.2 SECONDS (12.1-14.4)
[2017-10-25 07:09] LABS: PARTIAL THROMBOPLASTIN TIME 102.8 SECONDS (25.4-37.6)
[2017-10-25 07:19] LABS: ANION GAP 8 MEQ/L (8-16); BLOOD UREA NITROGEN 16 MG/DL (7-18); CALCIUM LEVEL 8.1 MG/DL (8.8-10.2); CARBON DIOXIDE LEVEL 28 MEQ/L (21-32); CHLORIDE LEVEL 107 MEQ/L (98-107); CREATININE FOR GFR 0.57 MG/DL (0.55-1.30); GLOMERULAR FILTRATION RATE > 60.0 (>39); GLUCOSE, FASTING 97 MG/DL (70-100); POTASSIUM SERUM 3.5 MEQ/L (3.5-5.1); SODIUM LEVEL 143 MEQ/L (136-145)
[2017-10-25] MEDS: SUCRALFATE 1 GM TAB PO ×4 (07:49→20:08)
[2017-10-25] MEDS: PHYTONADIONE 10MG/ML INJECTION (J3430) SC (08:00)
[2017-10-25] MEDS: HYDROCORTISONE 1% CREAM 30 GM TOP (09:00)
[2017-10-25] MEDS: PANTOPRAZOLE 40MG TAB (PROTONIX) PO ×2 (09:55→20:09)
[2017-10-25] MEDS: ATENOLOL 50 MG TAB PO ×2 (09:58→20:00)
[2017-10-25 17:05] LABS: IMMEDIATE SPIN CROSSMATCH 1 2
[2017-10-25] MEDS: SIMVASTATIN 20 MG TAB PO (20:08)
[2017-10-26] MEDS: LUTEIN 6 MG PO (06:10)
[2017-10-26] MEDS: ISOSORBIDE DIN. (ISORDIL) 30 MG TAB PO ×4 (06:10→23:52)
[2017-10-26] MEDS: MEROPENEM INJ 1 GM in APPROPRIATE DILUENT 1 EA IV ×3 (06:10→23:52)
[2017-10-26] MEDS: [UNRECOGNIZED DRUG - OTHER] PO (06:11)
[2017-10-26 06:54] LABS: BASO % 0.3 % (0.0-1.0); EOS # 0.2 10^3/uL (0.0-0.50); EOS % 1.6 % (0.0-3.0); HEMATOCRIT 31.1 % (36.0-47.0); HEMOGLOBIN 10.5 g/dl (12.0-15.5); IMMATURE GRANULOCYTE % 4.9 % (0-3.0); LYMPH # 1.3 10^3/uL (1.5-4.5); LYMPH % 12.6 % (24.0-44.0); MEAN CORPUSCULAR HEMOGLOBIN 29.1 pg (27.0-33.0); MEAN CORPUSCULAR HGB CONC 33.8 g/dl (32.0-36.5); MEAN CORPUSCULAR VOLUME 86.1 fl (80.0-96.0); MONO # 0.5 10^3/uL (0.0-0.8); MONO % 5.3 % (0.0-5.0); NEUTROPHILS # 7.7 10^3/uL (1.8-7.7); NEUTROPHILS % 75.3 % (36.0-66.0); PLATELET COUNT, AUTOMATED 282 10^3/uL (150-450); RED BLOOD COUNT 3.61 10^6/uL (4.00-5.40); RED CELL DISTRIBUTION WIDTH 14.5 % (11.5-14.5); WHITE BLOOD COUNT 10.2 10^3/uL (4.0-10.0)
[2017-10-26 07:00] LABS: PROTHROMBIN TIME 14.3 SECONDS (12.1-14.4)
[2017-10-26 07:07] LABS: ANION GAP 7 MEQ/L (8-16); BLOOD UREA NITROGEN 13 MG/DL (7-18); CALCIUM LEVEL 8.1 MG/DL (8.8-10.2); CARBON DIOXIDE LEVEL 30 MEQ/L (21-32); CHLORIDE LEVEL 105 MEQ/L (98-107); CREATININE FOR GFR 0.68 MG/DL (0.55-1.30); GLOMERULAR FILTRATION RATE > 60.0 (>39); GLUCOSE, FASTING 93 MG/DL (70-100); MAGNESIUM LEVEL 1.8 MG/DL (1.8-2.4); POTASSIUM SERUM 3.6 MEQ/L (3.5-5.1); SODIUM LEVEL 142 MEQ/L (136-145)
[2017-10-26] MEDS: SUCRALFATE 1 GM TAB PO ×4 (08:13→21:23)
[2017-10-26] MEDS: PANTOPRAZOLE 40MG TAB (PROTONIX) PO ×2 (08:13→21:24)
[2017-10-26] MEDS: ATENOLOL 50 MG TAB PO ×2 (08:14→21:24)
[2017-10-26] MEDS: HYDROCORTISONE 1% CREAM 30 GM TOP (08:16)
[2017-10-26] MEDS: TAMSULOSIN 0.4 MG CAP PO (21:23)
[2017-10-26] MEDS: SIMVASTATIN 20 MG TAB PO (21:24)
[2017-10-27 05:56] LABS: BASO % 0.1 % (0.0-1.0); EOS # 0.1 10^3/uL (0.0-0.50); EOS % 1.4 % (0.0-3.0); HEMATOCRIT 28.1 % (36.0-47.0); HEMOGLOBIN 9.6 g/dl (12.0-15.5); IMMATURE GRANULOCYTE % 2.4 % (0-3.0); LYMPH # 1.4 10^3/uL (1.5-4.5); LYMPH % 15.3 % (24.0-44.0); MEAN CORPUSCULAR HEMOGLOBIN 29.2 pg (27.0-33.0); MEAN CORPUSCULAR HGB CONC 34.2 g/dl (32.0-36.5); MEAN CORPUSCULAR VOLUME 85.4 fl (80.0-96.0); MONO # 0.6 10^3/uL (0.0-0.8); NEUTROPHILS % 74.8 % (36.0-66.0); PLATELET COUNT, AUTOMATED 275 10^3/uL (150-450); RED BLOOD COUNT 3.29 10^6/uL (4.00-5.40); RED CELL DISTRIBUTION WIDTH 14.6 % (11.5-14.5); WHITE BLOOD COUNT 9.3 10^3/uL (4.0-10.0)
[2017-10-27 06:16] LABS: PROTHROMBIN TIME 14.4 SECONDS (12.1-14.4)
[2017-10-27] MEDS: ISOSORBIDE DIN. (ISORDIL) 30 MG TAB PO ×4 (06:20→23:32)
[2017-10-27] MEDS: MEROPENEM INJ 1 GM in APPROPRIATE DILUENT 1 EA IV (06:21)
[2017-10-27 06:24] LABS: ANION GAP 7 MEQ/L (8-16); BLOOD UREA NITROGEN 10 MG/DL (7-18); CALCIUM LEVEL 7.9 MG/DL (8.8-10.2); CARBON DIOXIDE LEVEL 28 MEQ/L (21-32); CHLORIDE LEVEL 107 MEQ/L (98-107); CREATININE FOR GFR 0.68 MG/DL (0.55-1.30); GLOMERULAR FILTRATION RATE > 60.0 (>39); GLUCOSE, FASTING 95 MG/DL (70-100); MAGNESIUM LEVEL 1.9 MG/DL (1.8-2.4); POTASSIUM SERUM 3.7 MEQ/L (3.5-5.1); SODIUM LEVEL 142 MEQ/L (136-145)
[2017-10-27] MEDS: HYDROCORTISONE 1% CREAM 30 GM TOP (08:53)
[2017-10-27] MEDS: SUCRALFATE 1 GM TAB PO ×4 (08:53→20:33)
[2017-10-27] MEDS: PANTOPRAZOLE 40MG TAB (PROTONIX) PO ×2 (08:54→20:33)
[2017-10-27] MEDS: ATENOLOL 50 MG TAB PO ×2 (08:54→20:33)
[2017-10-27] MEDS: SIMVASTATIN 20 MG TAB PO (20:33)
[2017-10-27] MEDS: TAMSULOSIN 0.4 MG CAP PO (20:33)
[2017-10-28] MEDS: ACETAMINOPHEN TAB 650MG DOSE (2X325MG) PO (03:07)
[2017-10-28] MEDS: ISOSORBIDE DIN. (ISORDIL) 30 MG TAB PO ×4 (06:00→23:14)
[2017-10-28 06:59] LABS: BASO % 0.4 % (0.0-1.0); EOS # 0.2 10^3/uL (0.0-0.50); EOS % 1.9 % (0.0-3.0); HEMATOCRIT 30.4 % (36.0-47.0); HEMOGLOBIN 10.2 g/dl (12.0-15.5); IMMATURE GRANULOCYTE % 1.5 % (0-3.0); LYMPH # 1.6 10^3/uL (1.5-4.5); LYMPH % 18.7 % (24.0-44.0); MEAN CORPUSCULAR HEMOGLOBIN 29.2 pg (27.0-33.0); MEAN CORPUSCULAR HGB CONC 33.6 g/dl (32.0-36.5); MEAN CORPUSCULAR VOLUME 87.1 fl (80.0-96.0); MONO # 0.6 10^3/uL (0.0-0.8); MONO % 7.1 % (0.0-5.0); NEUTROPHILS % 70.4 % (36.0-66.0); PLATELET COUNT, AUTOMATED 320 10^3/uL (150-450); RED BLOOD COUNT 3.49 10^6/uL (4.00-5.40); RED CELL DISTRIBUTION WIDTH 14.6 % (11.5-14.5); WHITE BLOOD COUNT 8.5 10^3/uL (4.0-10.0)
[2017-10-28 07:15] LABS: ANION GAP 7 MEQ/L (8-16); BLOOD UREA NITROGEN 9 MG/DL (7-18); CALCIUM LEVEL 8.5 MG/DL (8.8-10.2); CARBON DIOXIDE LEVEL 28 MEQ/L (21-32); CHLORIDE LEVEL 107 MEQ/L (98-107); GLOMERULAR FILTRATION RATE > 60.0 (>39); GLUCOSE, FASTING 120 MG/DL (70-100); POTASSIUM SERUM 3.8 MEQ/L (3.5-5.1); SODIUM LEVEL 142 MEQ/L (136-145)
[2017-10-28] MEDS: ATENOLOL 50 MG TAB PO ×2 (09:00→21:23)
[2017-10-28] MEDS: SUCRALFATE 1 GM TAB PO (09:07)
[2017-10-28] MEDS: PANTOPRAZOLE 40MG TAB (PROTONIX) PO ×2 (09:07→21:20)
[2017-10-28] MEDS: SUCRALFATE SUSP 1GM/10ML UD PO ×3 (11:50→21:24)
[2017-10-28] MEDS: SIMVASTATIN 20 MG TAB PO (21:20)
[2017-10-28] MEDS: TAMSULOSIN 0.4 MG CAP PO (21:23)
[2017-10-29] MEDS: ISOSORBIDE DIN. (ISORDIL) 30 MG TAB PO ×3 (05:43→17:25)
[2017-10-29 06:57] LABS: BASO % 0.3 % (0.0-1.0); EOS # 0.1 10^3/uL (0.0-0.50); EOS % 1.5 % (0.0-3.0); HEMOGLOBIN 9.2 g/dl (12.0-15.5); IMMATURE GRANULOCYTE % 0.6 % (0-3.0); LYMPH # 1.4 10^3/uL (1.5-4.5); LYMPH % 17.6 % (24.0-44.0); MEAN CORPUSCULAR HGB CONC 32.9 g/dl (32.0-36.5); MEAN CORPUSCULAR VOLUME 88.3 fl (80.0-96.0); MONO # 0.6 10^3/uL (0.0-0.8); MONO % 7.1 % (0.0-5.0); NEUTROPHILS # 5.8 10^3/uL (1.8-7.7); NEUTROPHILS % 72.9 % (36.0-66.0); PLATELET COUNT, AUTOMATED 334 10^3/uL (150-450); RED BLOOD COUNT 3.17 10^6/uL (4.00-5.40); RED CELL DISTRIBUTION WIDTH 14.6 % (11.5-14.5); WHITE BLOOD COUNT 7.9 10^3/uL (4.0-10.0)
[2017-10-29 07:09] LABS: ANION GAP 7 MEQ/L (8-16); BLOOD UREA NITROGEN 10 MG/DL (7-18); CALCIUM LEVEL 8.1 MG/DL (8.8-10.2); CARBON DIOXIDE LEVEL 27 MEQ/L (21-32); CHLORIDE LEVEL 108 MEQ/L (98-107); CREATININE FOR GFR 0.68 MG/DL (0.55-1.30); GLOMERULAR FILTRATION RATE > 60.0 (>39); GLUCOSE, FASTING 98 MG/DL (70-100); POTASSIUM SERUM 3.8 MEQ/L (3.5-5.1); SODIUM LEVEL 142 MEQ/L (136-145)
[2017-10-29] MEDS: ATENOLOL 50 MG TAB PO ×2 (08:09→21:00)
[2017-10-29] MEDS: SUCRALFATE SUSP 1GM/10ML UD PO ×4 (08:09→21:55)
[2017-10-29] MEDS: PANTOPRAZOLE 40MG TAB (PROTONIX) PO ×2 (08:10→21:55)
[2017-10-29] MEDS: TAMSULOSIN 0.4 MG CAP PO (21:55)
[2017-10-29] MEDS: SIMVASTATIN 20 MG TAB PO (21:55)
[2017-10-30] MEDS: ISOSORBIDE DIN. (ISORDIL) 30 MG TAB PO ×4 (06:00→22:00)
[2017-10-30 06:30] LABS: MAGNESIUM LEVEL 2.1 MG/DL (1.8-2.4)
[2017-10-30] MEDS: ATENOLOL 50 MG TAB PO (07:59)
[2017-10-30] MEDS: PANTOPRAZOLE 40MG TAB (PROTONIX) PO ×2 (07:59→20:06)
[2017-10-30] MEDS: SUCRALFATE SUSP 1GM/10ML UD PO ×4 (07:59→20:05)
[2017-10-30 08:07] LABS: ANION GAP 8 MEQ/L (8-16); BLOOD UREA NITROGEN 10 MG/DL (7-18); CALCIUM LEVEL 8.4 MG/DL (8.8-10.2); CARBON DIOXIDE LEVEL 27 MEQ/L (21-32); CHLORIDE LEVEL 109 MEQ/L (98-107); GLOMERULAR FILTRATION RATE > 60.0 (>39); GLUCOSE, FASTING 90 MG/DL (70-100); POTASSIUM SERUM 3.8 MEQ/L (3.5-5.1); SODIUM LEVEL 144 MEQ/L (136-145)
[2017-10-30] MEDS: SENOKOT S TAB PO ×2 (09:00→20:06)
[2017-10-30] MEDS: METOPROLOL SUCC (TopROL XL) 50MG **XL** TAB PO ×2 (10:18→20:06)
[2017-10-30] MEDS: TAMSULOSIN 0.4 MG CAP PO (20:06)
[2017-10-30] MEDS: SIMVASTATIN 20 MG TAB PO (20:06)
[2017-10-31] MEDS: ISOSORBIDE DIN. (ISORDIL) 30 MG TAB PO ×2 (06:21→13:50)
[2017-10-31 06:56] LABS: HEMATOCRIT 32.2 % (36.0-47.0); HEMOGLOBIN 10.5 g/dl (12.0-15.5); MEAN CORPUSCULAR HEMOGLOBIN 28.8 pg (27.0-33.0); MEAN CORPUSCULAR HGB CONC 32.6 g/dl (32.0-36.5); MEAN CORPUSCULAR VOLUME 88.5 fl (80.0-96.0); PLATELET COUNT, AUTOMATED 464 10^3/uL (150-450); RED BLOOD COUNT 3.64 10^6/uL (4.00-5.40); RED CELL DISTRIBUTION WIDTH 14.1 % (11.5-14.5); WHITE BLOOD COUNT 7.8 10^3/uL (4.0-10.0)
[2017-10-31 07:11] LABS: ANION GAP 8 MEQ/L (8-16); BLOOD UREA NITROGEN 9 MG/DL (7-18); CALCIUM LEVEL 8.6 MG/DL (8.8-10.2); CARBON DIOXIDE LEVEL 25 MEQ/L (21-32); CHLORIDE LEVEL 108 MEQ/L (98-107); CREATININE FOR GFR 0.81 MG/DL (0.55-1.30); GLOMERULAR FILTRATION RATE > 60.0 (>39); GLUCOSE, FASTING 115 MG/DL (70-100); MAGNESIUM LEVEL 2.1 MG/DL (1.8-2.4); POTASSIUM SERUM 3.7 MEQ/L (3.5-5.1); SODIUM LEVEL 141 MEQ/L (136-145)
[2017-10-31] MEDS: SUCRALFATE SUSP 1GM/10ML UD PO ×2 (08:14→12:15)
[2017-10-31] MEDS: SENOKOT S TAB PO (08:24)
[2017-10-31] MEDS: PANTOPRAZOLE 40MG TAB (PROTONIX) PO (09:53)
[2017-10-31] MEDS: METOPROLOL SUCC (TopROL XL) 50MG **XL** TAB PO (09:53)
== END 2017-10-31 13:48 | disposition home or self-care (01) | DRG 329 ==
LOC: M ED 21:41 → M MSPAV 10-24 10:10 → M ED INP 10-17 03:27 → M ICU 10-17 08:00
PROC: 0DB80ZZ Excision of Small Intestine, Open Approach (ICD-10-PCS; principal; 2017-10-18 18:53)
PROC: 5A1935Z Respiratory Ventilation, Less than 24 Consecutive Hours (ICD-10-PCS; 2017-10-18 19:39)
PROC: 30233N1 Transfusion of Nonautologous Red Blood Cells into Peripheral Vein, Percutaneous Approach (ICD-10-PCS; 2017-10-18 19:39)
DX: K55.059 Acute (reversible) ischemia of intestine, part and extent unspecified (principal); A41.9 Sepsis, unspecified organism; R65.20 Severe sepsis without septic shock; J95.821 Acute postprocedural respiratory failure; I16.1 Hypertensive emergency; N17.9 Acute kidney failure, unspecified; E87.2 Acidosis; I82.611 Acute embolism and thrombosis of superficial veins of right upper extremity; D62 Acute posthemorrhagic anemia; I48.91 Unspecified atrial fibrillation; Z86.73 Personal history of transient ischemic attack (TIA), and cerebral infarction without residual deficits; F41.9 Anxiety disorder, unspecified; Z79.82 Long term (current) use of aspirin; Z79.899 Other long term (current) drug therapy; Z88.2 Allergy status to sulfonamides; Z91.040 Latex allergy status; Z91.041 Radiographic dye allergy status; Z91.14 Patient's other noncompliance with medication regimen

== ENCOUNTER 2018-07-28 14:27 | Emergency (ER) | payer MEDICARE, OTHER ==
[~2018-07-28] VITALS: Ht 165.1 cm; Wt 74.1 kg
[~2018-07-28 14:27] MED LIST changes: -/AMLO25TA PO; -/CLON2TA PO; +CLON-413 PO; -CODCAP PO; +CODCAP4 PO; +HYDR10TAB PO; +ISOS60TA2 PO; +MICA5TAB PO; +NORV2TAB PO; +PANT40TA3 PO; +SIMV20TA2 PO; +SUCR10SS PO
[2018-07-28] MEDS ORDERED: METO1TAB7 PO (14:44)
[2018-07-28] MEDS ORDERED: TELM1TAB PO (14:44)
[2018-07-28] MEDS ORDERED: WARF-58 PO (14:44)
[2018-07-28] MEDS ORDERED: KETOROLAC 60 MG/2 ML VIAL (J1885) IM ONE (14:45)
[2018-07-28] MEDS ORDERED: diazePAM 10 MG TAB PO ONE (14:45)
[2018-07-28 15:50] LABS: HEMATOCRIT 41.3 % (36.0-47.0); HEMOGLOBIN 13.9 g/dl (12.0-15.5); MEAN CORPUSCULAR HEMOGLOBIN 28.4 pg (27.0-33.0); MEAN CORPUSCULAR HGB CONC 33.7 g/dl (32.0-36.5); MEAN CORPUSCULAR VOLUME 84.3 fl (80.0-96.0); PLATELET COUNT, AUTOMATED 259 10^3/uL (150-450); WHITE BLOOD COUNT 6.6 10^3/uL (4.0-10.0)
[2018-07-28 16:08] LABS: CALCIUM LEVEL 8.6 MG/DL (8.8-10.2); CREATININE FOR GFR 0.98 MG/DL (0.55-1.30); GLOMERULAR FILTRATION RATE 59.6 (>39); POTASSIUM SERUM 3.7 MEQ/L (3.5-5.1)
[2018-07-28] MEDS ORDERED: LABETALOL HCL 100 MG/20 ML VIAL IV STA (16:34)
[2018-07-28] MEDS ORDERED: NAPR-837 PO (16:39)
[2018-07-28] MEDS ORDERED: SOMA350T PO (16:39)
[2018-07-28] MEDS ORDERED: LABETALOL 100 MG TAB PO ONE (17:15)
[2018-07-28 17:16] VITALS: BP 212/110
[2018-07-28 18:58] VITALS: BP 182/98
[2018-07-28] MEDS ORDERED: METOPROLOL SUCC (TopROL XL) 50MG **XL** TAB PO ONE (19:00)
== END 2018-07-28 19:31 | disposition home or self-care (01) ==
LOC: M ED 14:27
DX: M54.41 Lumbago with sciatica, right side (principal); I25.10 Atherosclerotic heart disease of native coronary artery without angina pectoris; Z79.899 Other long term (current) drug therapy; Z79.01 Long term (current) use of anticoagulants; Z88.1 Allergy status to other antibiotic agents; Z88.2 Allergy status to sulfonamides; Z91.040 Latex allergy status; Z91.041 Radiographic dye allergy status; Z87.891 Personal history of nicotine dependence
CPT/HCPCS: 36415; 80048; 85027; 96372; 99284; J1885

== ENCOUNTER → 2019-09-19 | Outpatient (CLI) | payer MEDICARE, OTHER ==
[~2019-09-19] MED LIST changes: -CODCAP4 PO; +CODCAP5 PO; +METO1TAB7 PO; +NAPR-837 PO; -SIMV20TA2 PO; +SIMV20TA22 PO; +SOMA350T PO; -SUCR10SS PO; +SUCR1ORA2 PO; +TELM1TAB35 PO; +WARF-58 PO
[2019-09-19 09:28] LABS: BASO % 0.3 % (0.0-1.0); EOS % 0.5 % (0.0-3.0); HEMATOCRIT 43.2 % (36.0-47.0); HEMOGLOBIN 14.2 g/dl (12.0-15.5); LYMPH # 2.1 10^3/uL (1.5-5.0); MEAN CORPUSCULAR HEMOGLOBIN 28.7 pg (27.0-33.0); MEAN CORPUSCULAR HGB CONC 32.9 g/dl (32.0-36.5); MEAN CORPUSCULAR VOLUME 87.3 fl (80.0-96.0); MONO # 0.5 10^3/uL (0.0-0.8); MONO % 7.4 % (0.0-5.0); NEUTROPHILS # 3.7 10^3/uL (1.5-8.5); NEUTROPHILS % 58.6 % (36.0-66.0); PLATELET COUNT, AUTOMATED 258 10^3/uL (150-450); RED BLOOD COUNT 4.95 10^6/uL (4.00-5.40); WHITE BLOOD COUNT 6.3 10^3/uL (4.0-10.0)
[2019-09-19 09:56] LABS: BILIRUBIN,TOTAL 0.9 MG/DL (0.2-1.0); CALCIUM LEVEL 8.8 MG/DL (8.8-10.2); CHOLESTEROL RISK RATIO 5.622 (<5); GLOMERULAR FILTRATION RATE 57.9 (>39); POTASSIUM SERUM 4.5 MEQ/L (3.5-5.1); TOTAL PROTEIN 7.3 GM/DL (6.4-8.2)
== END ==
LOC: M LAB 09:04
PROVIDERS: ATTEND Family Medicine
DX: I11.9 Hypertensive heart disease without heart failure (principal)

== ENCOUNTER 2019-10-22 00:57 | Emergency (ER) | payer MEDICARE, OTHER ==
[2019-10-22] MEDS ORDERED: MICA40TA PO (01:14)
[2019-10-22] MEDS ORDERED: ISOS30TA4 PO (01:14)
[2019-10-22 01:31] LABS: BASO % 0.4 % (0.0-1.0); EOS # 0.1 10^3/uL (0.0-0.5); EOS % 0.5 % (0.0-3.0); HEMATOCRIT 48.1 % (36.0-47.0); HEMOGLOBIN 15.9 g/dl (12.0-15.5); LYMPH # 1.7 10^3/uL (1.5-5.0); LYMPH % 17.6 % (24.0-44.0); MEAN CORPUSCULAR HEMOGLOBIN 28.8 pg (27.0-33.0); MEAN CORPUSCULAR HGB CONC 33.1 g/dl (32.0-36.5); MONO # 0.4 10^3/uL (0.0-0.8); MONO % 4.4 % (0.0-5.0); NEUTROPHILS # 7.4 10^3/uL (1.5-8.5); NEUTROPHILS % 76.8 % (36.0-66.0); PLATELET COUNT, AUTOMATED 271 10^3/uL (150-450); RED BLOOD COUNT 5.53 10^6/uL (4.00-5.40); WHITE BLOOD COUNT 9.6 10^3/uL (4.0-10.0)
[2019-10-22 01:44] LABS: INR 1.76; PROTHROMBIN TIME 20.3 SECONDS (11.8-14.0)
[2019-10-22 01:54] LABS: ALBUMIN 4.3 GM/DL (3.2-5.2); ALT/SGPT 33 U/L (12-78); BILIRUBIN,DIRECT 0.1 MG/DL (0.0-0.2); BILIRUBIN,TOTAL 0.4 MG/DL (0.2-1.0); BLOOD UREA NITROGEN 19 MG/DL (7-18); CALCIUM LEVEL 9.3 MG/DL (8.8-10.2); CARBON DIOXIDE LEVEL 27 MEQ/L (21-32); CHLORIDE LEVEL 106 MEQ/L (98-107); CK-MB VALUE MASS 1.4 NG/ML (<3.6); CPK CREATINE PHOSPHOKINASE 74 U/L (26-192); CREATININE FOR GFR 0.97 MG/DL (0.55-1.30); GLOMERULAR FILTRATION RATE 59.9 (>39); GLUCOSE, FASTING 123 MG/DL (70-100); LIPASE 202 U/L (73-393); MB/CK RELATIVE INDEX 1.89 (< OR =4); POTASSIUM SERUM 4.2 MEQ/L (3.5-5.1); SODIUM LEVEL 141 MEQ/L (136-145); TROPONIN I < 0.02 NG/ML (< 0.10)
[2019-10-22] MEDS ORDERED: hydrALAZINE 20MG/ML 1ML VIAL (J0360 PER 20MG) IV STA (02:54)
[2019-10-22] MEDS ORDERED: NS 500 ML IV ONE (03:00)
[2019-10-22] MEDS ORDERED: MORPHINE 2 MG/ML 1ML VIAL (J2270) IV ONE (03:00)
[2019-10-22] MEDS ORDERED: METOCLOPRAMIDE INJ 10MG/2ML VIAL (J2765 PER 1) IV ONE (03:00)
[2019-10-22] MEDS: READI-CAT 2 PO SCH ×2 (03:28→04:17)
[2019-10-22] MEDS ORDERED: READI-CAT 2 PO SCH (03:30)
[2019-10-22 03:46] LABS: PARTIAL THROMBOPLASTIN TIME 33.5 SECONDS (25.0-38.4)
[2019-10-22 04:30] VITALS: BP 155/81
--- NOTE | 2019-10-22 05:26 | REPVR ---
PROCEDURE INFORMATION: Exam: CT Abdomen And Pelvis Without Contrast Exam date and time: 10/22/2019 5:01 AM Age: 74 years old Clinical indication: Abdominal pain; Additional info: Rlq pain/iv contrast anaphylaxis TECHNIQUE: Imaging protocol: Computed tomography of the abdomen and pelvis without contrast. Radiation optimization: All CT scans at this facility use at least one of these dose optimization techniques: automated exposure control; mA and/or kV adjustment per patient size (includes targeted exams where dose is matched to clinical indication); or iterative reconstruction. COMPARISON: CT ABD/PEL W/IV ORAL CONTRAS 10/18/2017 5:49 PM FINDINGS: Lungs: Linear interstitial thickening in the lung bases suggesting mild interstitial edema. Pleural space: Small bilateral pleural effusions. Heart: Mild cardiomegaly. Mediastinal space: There is a small hiatal hernia. Liver: Normal. No mass. Gallbladder and bile ducts: Gallbladder calculi without evidence of cholecystitis or biliary duct dilation. Pancreas: Normal. No ductal dilation. Spleen: Normal. No splenomegaly. Adrenals: Normal. No mass. Kidneys and ureters: Normal. No hydronephrosis. Stomach and bowel: There is colonic diverticulosis without evidence of diverticulitis. Moderate amount of fecal material in the colon.The appendix is not well-visualized. No right lower quadrant inflammatory changes. The small bowel is unremarkable. Appendix: No evidence of appendicitis. Intraperitoneal space: Unremarkable. No free air. No significant fluid collection. Vasculature: Unremarkable. No abdominal aortic aneurysm. Lymph nodes: Unremarkable. No enlarged lymph nodes. Bladder: Unremarkable as visualized. Reproductive: Unremarkable as visualized. Bones/joints: There are advanced degenerative changes in the spine and pelvis. Soft tissues: There is a small fat containing umbilical hernia. Diastasis of the rectus abdominus muscles. Small fat containing midline anterior abdominal wall hernia in the lower abdomen. IMPRESSION: 1. Colonic diverticulosis without evidence of diverticulitis. 2. Cholelithiasis. 3. Mild constipation. 4. Small hiatal hernia. Small fat containing anterior abdominal wall hernias. 5. Small bilateral pleural effusions with mild interstitial edema. Electronically signed by: Jose Smith On 10/22/2019 05:26:03 AM
--- NOTE | 2019-10-23 20:54 | ECGEPIP ---
[facility] - ED Test Date: 2019-10-22 Pat Name: AMALIA VANG Department: Room: - Gender: Female [facility] Resident: : [id number] Requested By: ANTHONY REYES Order Number: [id number] Reading MD: Fariba Thomas Measurements Intervals [place] Rate: 90 P: [place]: 0 QRS: 38 QRSD: 102 T: 68 QT: 383 QTc: 471 Interpretive Statements ATRIAL FIBRILLATION MODERATE ST DEPRESSION similar 21:51 Electronically Signed on 10-23-2019 20:54:17 EDT by Fariba Thomas
== END 2019-10-22 05:50 | disposition home or self-care (01) ==
LOC: M ED 00:57
DX: I48.91 Unspecified atrial fibrillation (principal); K80.20 Calculus of gallbladder without cholecystitis without obstruction; I10 Essential (primary) hypertension; F41.9 Anxiety disorder, unspecified; K57.30 Diverticulosis of large intestine without perforation or abscess without bleeding; Z79.01 Long term (current) use of anticoagulants; Z79.899 Other long term (current) drug therapy; Z91.041 Radiographic dye allergy status; Z91.040 Latex allergy status; Z88.2 Allergy status to sulfonamides
CPT/HCPCS: 74176; 80048; 80076; 82550; 82553; 83690; 84484; 85025; 85610; 85730; 93005; 93041; 96361; 96374; 96375; 99285; J0360; J2765

== ENCOUNTER → 2020-06-27 | Outpatient (CLI) | payer MEDICARE, OTHER ==
[~2020-06-27] MED LIST changes: +ISOS1TAB35 PO; +ISOS1TAB36 PO; -ISOS60TA2 PO; +LABE100T4 PO; -LABE10TAB PO; +MICA40TA PO; +PANT40TA29 PO; -PANT40TA3 PO
[2020-06-27 12:29] LABS: BASO # 0.1 10^3/uL (0.0-0.2); BASO % 0.8 % (0.0-1.0); EOS % 0.6 % (0.0-3.0); HEMATOCRIT 45.3 % (36.0-47.0); HEMOGLOBIN 14.5 g/dl (12.0-15.5); LYMPH # 2.1 10^3/uL (1.5-5.0); LYMPH % 33.1 % (24.0-44.0); MEAN CORPUSCULAR HEMOGLOBIN 28.4 pg (27.0-33.0); MEAN CORPUSCULAR VOLUME 88.8 fl (80.0-96.0); MONO # 0.5 10^3/uL (0.0-0.8); MONO % 7.5 % (2.0-8.0); NEUTROPHILS # 3.6 10^3/uL (1.5-8.5); NEUTROPHILS % 57.8 % (36.0-66.0); PLATELET COUNT, AUTOMATED 261 10^3/uL (150-450); WHITE BLOOD COUNT 6.3 10^3/uL (4.0-10.0)
[2020-06-27 12:58] LABS: ALBUMIN 4.2 GM/DL (3.2-5.2); ALT/SGPT 36 U/L (12-78); BILIRUBIN,TOTAL 0.6 MG/DL (0.2-1.0); BLOOD UREA NITROGEN 13 MG/DL (7-18); CALCIUM LEVEL 9.5 MG/DL (8.8-10.2); CARBON DIOXIDE LEVEL 31 MEQ/L (21-32); CHLORIDE LEVEL 108 MEQ/L (98-107); CHOLESTEROL LEVEL 265 MG/DL (<200); CHOLESTEROL RISK RATIO 5.408 (<5); CREATININE FOR GFR 0.94 MG/DL (0.55-1.30); GLOMERULAR FILTRATION RATE > 60.0 (>39); GLUCOSE, FASTING 88 MG/DL (70-100); HDL CHOLESTEROL 49 MG/DL (>40); LDL CHOLESTEROL 173 MG/DL (<100); MAGNESIUM LEVEL 2.4 MG/DL (1.8-2.4); NON-HDL-C 216 MG/DL; POTASSIUM SERUM 4.5 MEQ/L (3.5-5.1); SODIUM LEVEL 143 MEQ/L (136-145); TOTAL PROTEIN 7.6 GM/DL (6.4-8.2); TRIGLYCERIDES LEVEL 217 MG/DL (<150)
== END ==
LOC: M LAB 11:08
PROVIDERS: ATTEND Family Medicine
DX: I10 Essential (primary) hypertension (principal)

== ENCOUNTER → 2020-12-24 | Outpatient (CLI) | payer MEDICARE, OTHER ==
[2020-12-24 09:38] LABS: BLOOD UREA NITROGEN 15 MG/DL (7-18); CARBON DIOXIDE LEVEL 30 MEQ/L (21-32); CHLORIDE LEVEL 108 MEQ/L (98-107); CHOLESTEROL LEVEL 268 MG/DL (<200); CHOLESTEROL RISK RATIO 5.955 (<5); CREATININE FOR GFR 0.85 MG/DL (0.55-1.30); GLOMERULAR FILTRATION RATE > 60.0 (>39); GLUCOSE, FASTING 101 MG/DL (70-100); HDL CHOLESTEROL 45 MG/DL (>40); LDL CHOLESTEROL 185 MG/DL (<100); NON-HDL-C 223 MG/DL; POTASSIUM SERUM 4.1 MEQ/L (3.5-5.1); SODIUM LEVEL 141 MEQ/L (136-145); TRIGLYCERIDES LEVEL 192 MG/DL (<150)
== END ==
LOC: M LAB 08:14
PROVIDERS: ATTEND Family Medicine
DX: I10 Essential (primary) hypertension (principal)

== ENCOUNTER → 2021-02-23 | Outpatient (CLI) | payer MEDICARE, OTHER ==
--- NOTE | 2021-02-23 10:09 | REP ---
INDICATION: LEFT KNEE PAIN. COMPARISON: None. TECHNIQUE: Axial noncontrast images through the left knee with coronal and sagittal reformations. FINDINGS: Sagittal reformations best demonstrate mild prepatellar/anterior subcutaneous soft tissue swelling. The osseous structures and joint spaces are essentially age-appropriate and intact without evidence for acute fracture or dislocation. Age-related degenerative changes include tibiofemoral joint space narrowing. No significant osteophytosis. No joint effusion. IMPRESSION: Generalized age-related changes. New evidence No evidence for acute fracture or dislocation. No effusion. <Electronically signed by Julian Valencia > 02/23/21 [id number]
== END ==
LOC: M PLAIMG 09:08
PROVIDERS: ATTEND Physician Assistant
DX: S80.02XA Contusion of left knee, initial encounter (principal)

== ENCOUNTER → 2021-08-25 | Outpatient (CLI) | payer MEDICARE, OTHER ==
[2021-08-25 11:00] LABS: BASO % 0.3 % (0.0-1.0); EOS # 0.1 10^3/uL (0.0-0.5); EOS % 1.1 % (0.0-3.0); HEMATOCRIT 41.6 % (36.0-47.0); HEMOGLOBIN 14.3 g/dl (12.0-15.5); LYMPH # 1.9 10^3/uL (1.5-5.0); MEAN CORPUSCULAR HEMOGLOBIN 30.8 pg (27.0-33.0); MEAN CORPUSCULAR HGB CONC 34.4 g/dl (32.0-36.5); MEAN CORPUSCULAR VOLUME 89.5 fl (80.0-96.0); MONO # 0.4 10^3/uL (0.0-0.8); MONO % 7.2 % (2.0-8.0); NEUTROPHILS # 3.7 10^3/uL (1.5-8.5); NEUTROPHILS % 60.1 % (36.0-66.0); PLATELET COUNT, AUTOMATED 251 10^3/uL (150-450); RED BLOOD COUNT 4.65 10^6/uL (4.00-5.40); WHITE BLOOD COUNT 6.1 10^3/uL (4.0-10.0)
[2021-08-25 11:10] LABS: ALBUMIN 3.8 GM/DL (3.2-5.2); ALT/SGPT 27 U/L (12-78); BILIRUBIN,TOTAL 1.2 MG/DL (0.2-1.0); BLOOD UREA NITROGEN 14 MG/DL (7-18); CARBON DIOXIDE LEVEL 29 MEQ/L (21-32); CHLORIDE LEVEL 106 MEQ/L (98-107); CHOLESTEROL LEVEL 217 MG/DL (<200); CHOLESTEROL RISK RATIO 5.166 (<5); CREATININE FOR GFR 0.96 MG/DL (0.55-1.30); GLOMERULAR FILTRATION RATE > 60.0 (>39); GLUCOSE, FASTING 101 MG/DL (70-100); HDL CHOLESTEROL 42 MG/DL (>40); LDL CHOLESTEROL 144 MG/DL (<100); NON-HDL-C 175 MG/DL; SODIUM LEVEL 140 MEQ/L (136-145); TOTAL PROTEIN 6.8 GM/DL (6.4-8.2); TRIGLYCERIDES LEVEL 155 MG/DL (<150)
== END ==
LOC: M PLALAB 08:23
PROVIDERS: ATTEND Family Medicine
DX: I10 Essential (primary) hypertension (principal)

== ENCOUNTER → 2021-09-22 | Outpatient (REF) | payer MEDICARE, OTHER | LOC: M LAB REF 16:43 | PROVIDERS: ATTEND Internal Medicine Nephrology | DX: E26.89 Other hyperaldosteronism (principal) ==

== ENCOUNTER → 2021-10-08 | Outpatient (CLI) | payer MEDICARE, OTHER | LOC: M RAD 08:50 | PROVIDERS: ATTEND Internal Medicine Nephrology | DX: N18.30 Chronic kidney disease, stage 3 unspecified (principal); I15.0 Renovascular hypertension ==

== ENCOUNTER → 2021-10-29 | Outpatient (CLI) | payer MEDICARE, OTHER | LOC: M RAD 09:11 | PROVIDERS: ATTEND Internal Medicine Nephrology | DX: I12.9 Hypertensive chronic kidney disease with stage 1 through stage 4 chronic kidney disease, or unspecified chronic kidney disease (principal); N18.30 Chronic kidney disease, stage 3 unspecified ==

== ENCOUNTER 2021-12-18 13:53 | Emergency (ER) | payer MEDICARE, OTHER ==
[~2021-12-18 13:53] MED LIST changes: -LABE100T4 PO; +LABE100T6 PO
[2021-12-18 14:49] LABS: BASO % 0.3 % (0.0-1.0); EOS % 0.3 % (0.0-3.0); HEMATOCRIT 44.8 % (36.0-47.0); HEMOGLOBIN 14.6 g/dl (12.0-15.5); LYMPH # 1.2 10^3/uL (1.5-5.0); LYMPH % 19.8 % (24.0-44.0); MEAN CORPUSCULAR HEMOGLOBIN 28.8 pg (27.0-33.0); MEAN CORPUSCULAR HGB CONC 32.6 g/dl (32.0-36.5); MEAN CORPUSCULAR VOLUME 88.4 fl (80.0-96.0); MONO # 0.4 10^3/uL (0.0-0.8); MONO % 6.1 % (2.0-8.0); NEUTROPHILS # 4.6 10^3/uL (1.5-8.5); NEUTROPHILS % 73.3 % (36.0-66.0); RED BLOOD COUNT 5.07 10^6/uL (4.00-5.40); WHITE BLOOD COUNT 6.2 10^3/uL (4.0-10.0)
[2021-12-18] MEDS ORDERED: hydrALAZINE 20MG/ML 1ML VIAL (J0360 PER 20MG) IV PRN (14:50)
[2021-12-18 15:02] LABS: INR 1.78; PROTHROMBIN TIME 21.1 SECONDS (12.7-14.5)
[2021-12-18 15:03] LABS: PARTIAL THROMBOPLASTIN TIME 31.5 SECONDS (25.9-37.0)
[2021-12-18 15:40] LABS: CK-MB VALUE MASS 1.9 NG/ML (<3.6); MB/CK RELATIVE INDEX 1.19 (< OR =4)
[2021-12-18 15:41] LABS: ALBUMIN 3.9 GM/DL (3.2-5.2); BILIRUBIN,DIRECT 0.4 MG/DL (0.0-0.2); BILIRUBIN,TOTAL 1.4 MG/DL (0.2-1.0); CALCIUM LEVEL 9.4 MG/DL (8.8-10.2); CREATININE FOR GFR 0.99 MG/DL (0.55-1.30); GLOMERULAR FILTRATION RATE 58.2 (>39); POTASSIUM SERUM 4.5 MEQ/L (3.5-5.1); THYROID STIMULATING HORMONE 1.81 uIU/ML (0.358-3.740); TOTAL PROTEIN 7.3 GM/DL (6.4-8.2)
[2021-12-18] MEDS ORDERED: **hydrALAZINE HCL** 25 MG TAB PO ONE (16:15)
[2021-12-18 16:30] LABS: CK-MB VALUE MASS 2.1 NG/ML (<3.6); MB/CK RELATIVE INDEX 2.14 (< OR =4)
[2021-12-18 17:00] VITALS: BP 196/95
== END 2021-12-18 17:24 | disposition home or self-care (01) ==
LOC: M ED 13:53 → EDBD 13:53 → M ED 17:24
DX: R07.9 Chest pain, unspecified (principal); I48.0 Paroxysmal atrial fibrillation; R94.5 Abnormal results of liver function studies; I10 Essential (primary) hypertension; F41.9 Anxiety disorder, unspecified; Z86.73 Personal history of transient ischemic attack (TIA), and cerebral infarction without residual deficits; Z79.01 Long term (current) use of anticoagulants; Z79.899 Other long term (current) drug therapy; Z91.040 Latex allergy status; Z88.2 Allergy status to sulfonamides; Z91.041 Radiographic dye allergy status
CPT/HCPCS: 71045; 80048; 80076; 82550; 82553; 83690; 83880; 84443; 84484; 85025; 85610; 85730; 93005; 93041; 94760; 96374; 99285; J0360

== ENCOUNTER → 2022-01-20 | Outpatient (CLI) | payer MEDICARE, OTHER ==
[2022-01-20 11:04] LABS: ALBUMIN 3.9 GM/DL (3.2-5.2); BILIRUBIN,DIRECT 0.2 MG/DL (0.0-0.2); BILIRUBIN,TOTAL 0.9 MG/DL (0.2-1.0); TOTAL PROTEIN 6.9 GM/DL (6.4-8.2)
== END ==
LOC: M LAB 09:28
PROVIDERS: ATTEND Family Medicine
DX: R74.01 Elevation of levels of liver transaminase levels (principal)

== ENCOUNTER → 2022-07-28 | Outpatient (CLI) | payer MEDICARE, OTHER ==
[2022-07-28 12:47] LABS: BASO % 0.3 % (0.0-1.0); EOS # 0.1 10^3/uL (0.0-0.5); HEMATOCRIT 43.6 % (36.0-47.0); LYMPH # 1.6 10^3/uL (1.5-5.0); LYMPH % 26.9 % (24.0-44.0); MEAN CORPUSCULAR HEMOGLOBIN 28.8 pg (27.0-33.0); MEAN CORPUSCULAR HGB CONC 32.1 g/dl (32.0-36.5); MEAN CORPUSCULAR VOLUME 89.7 fl (80.0-96.0); MONO # 0.4 10^3/uL (0.0-0.8); MONO % 6.5 % (2.0-8.0); NEUTROPHILS # 3.9 10^3/uL (1.5-8.5); PLATELET COUNT, AUTOMATED 236 10^3/uL (150-450); RED BLOOD COUNT 4.86 10^6/uL (4.00-5.40)
[2022-07-28 13:17] LABS: ALBUMIN 3.9 G/DL (3.2-5.2); ALKALINE PHOSPHATASE 83 U/L (46-116); ALT/SGPT 28 U/L (7.0-40); AST/SGOT 20 U/L (<34); BLOOD UREA NITROGEN 17 MG/DL (9-23); CALCIUM LEVEL 9.2 MG/DL (8.3-10.6); CARBON DIOXIDE LEVEL 30 MMOL/L (20-31); CHLORIDE LEVEL 105 MMOL/L (98-107); CHOLESTEROL LEVEL 219 MG/DL (<200); CHOLESTEROL RISK RATIO 5.04 (<5); CREATININE FOR GFR 0.88 MG/DL (0.55-1.30); GLOMERULAR FILTRATION RATE > 60.0 (>39); GLUCOSE, FASTING 84 MG/DL (74-106); HDL CHOLESTEROL 43.4 MG/DL (>40); LDL CHOLESTEROL 140.8 MG/DL (<100); NON-HDL-C 175.6 MG/DL; POTASSIUM SERUM 4.4 MMOL/L (3.5-5.1); SODIUM LEVEL 140 MMOL/L (136-145); TRIGLYCERIDES LEVEL 174 MG/DL (<150)
== END ==
LOC: M LAB 11:15
PROVIDERS: ATTEND Family Medicine
DX: I15.0 Renovascular hypertension (principal)

== ENCOUNTER 2022-08-02 10:46 | Inpatient (IN) | payer MEDICARE, OTHER ==
[~2022-08-02] VITALS: Ht 160 cm; Wt 67.9 kg
[2022-08-02] MEDS ORDERED: KP BTAB PO (12:04)
[2022-08-02] MEDS ORDERED: COEN100T PO (12:04)
[2022-08-02] MEDS ORDERED: GNP250TA9 PO (12:04)
[2022-08-02] MEDS ORDERED: REDCAP4 PO (12:04)
[2022-08-02] MEDS ORDERED: CRAN400C PO (12:04)
[2022-08-02] MEDS ORDERED: IRON325T2 PO (12:04)
[2022-08-02] MEDS ORDERED: ALPH600C PO (12:04)
[2022-08-02] MEDS ORDERED: ZINC220CA PO (12:04)
[2022-08-02] MEDS ORDERED: MAGN500T6 PO (12:04)
[2022-08-02 12:19] LABS: BASO % 0.5 % (0.0-1.0); EOS % 0.3 % (0.0-3.0); LYMPH # 1.1 10^3/uL (1.5-5.0); LYMPH % 17.2 % (24.0-44.0); MEAN CORPUSCULAR HGB CONC 32.6 g/dl (32.0-36.5); MEAN CORPUSCULAR VOLUME 89.2 fl (80.0-96.0); MONO # 0.3 10^3/uL (0.0-0.8); MONO % 4.7 % (2.0-8.0); PLATELET COUNT, AUTOMATED 235 10^3/uL (150-450); RED BLOOD COUNT 4.82 10^6/uL (4.00-5.40); WHITE BLOOD COUNT 6.5 10^3/uL (4.0-10.0)
[2022-08-02 12:29] LABS: INR 1.94; PROTHROMBIN TIME 22.5 SECONDS (12.5-14.5)
[2022-08-02] MEDS ORDERED: hydrALAZINE 20MG/ML 1ML VIAL IV ONE ×2 (12:40→13:55)
[2022-08-02] MEDS ORDERED: METOPROLOL SUCC (TopROL XL) 50MG **XL** TAB PO ONE (12:40)
[2022-08-02 12:47] LABS: BLOOD UREA NITROGEN 17 MG/DL (9-23); CARBON DIOXIDE LEVEL 28 MMOL/L (20-31); CHLORIDE LEVEL 107 MMOL/L (98-107); CREATININE FOR GFR 0.79 MG/DL (0.55-1.30); GLOMERULAR FILTRATION RATE > 60.0 (>39); GLUCOSE, FASTING 96 MG/DL (74-106); POTASSIUM SERUM 4.6 MMOL/L (3.5-5.1); SODIUM LEVEL 141 MMOL/L (136-145)
[2022-08-02 13:59] LABS: APPEARANCE, URINE CLEAR (CLEAR); BACTERIA, URINE AUTO NEGATIVE (NEGATIVE); BILIRUBIN, URINE AUTO NEGATIVE (NEGATIVE); BLOOD, URINE BLOOD NEGATIVE (NEGATIVE); COLOR, URINE STRAW (YELLOW); GLUCOSE, URINE (UA) AUTO NEGATIVE (NEGATIVE); KETONE, URINE AUTO NEGATIVE (NEGATIVE); LEUKOCYTE ESTERASE, URINE AUTO NEGATIVE (NEGATIVE); NITRITE, URINE AUTO NEGATIVE (NEGATIVE); PROTEIN, URINE AUTO 1+ mg/dL (NEGATIVE); RBC, URINE AUTO 1 /HPF (0-3); SPECIFIC GRAVITY URINE AUTO 1.006 (1.002-1.035); SQUAMOUS EPITHELIAL CELL UR AU 0 /HPF (0-6); UROBILINOGEN, URINE AUTO 0.2 mg/dL (0.0-2.0); WBC, URINE AUTO 0 /HPF (0-3)
[2022-08-02] MEDS ORDERED: ACETAMINOPHEN TAB 650MG DOSE (2X325MG) PO ONE (14:25)
[2022-08-02] MEDS ORDERED: NS 500 ML IV ONE ×2 (14:55→15:00)
[2022-08-02 15:43] LABS: CK-MB VALUE MASS 1.1 NG/ML (<3.6)
[2022-08-02 15:44] LABS: MB/CK RELATIVE INDEX 1.34 (< OR =4)
[2022-08-02] MEDS ORDERED: ASPIRIN 81MG CHEW TABLET PO ONE (15:45)
[2022-08-02] MEDS ORDERED: diazePAM 10MG/2ML SYRINGE IV ONE (16:05)
[2022-08-02 16:22] LABS: CK-MB VALUE MASS 1.5 NG/ML (<3.6); MB/CK RELATIVE INDEX 1.74 (< OR =4)
[2022-08-02] MEDS ORDERED: WARFARIN SOD 3MG TAB PO SCH (17:00)
[2022-08-02 17:42] LABS: RSV AMPLIFICATION NEGATIVE (NEGATIVE)
[2022-08-02] MEDS ORDERED: WARF-58 PO (17:51)
[2022-08-02] MEDS ORDERED: TELM1TAB33 PO (17:51)
[2022-08-02] MEDS ORDERED: OMEG10002 PO (17:53)
[2022-08-02] MEDS ORDERED: BETA1TAB PO (17:53)
[2022-08-02] MEDS ORDERED: B-650TAB2 PO (17:53)
[2022-08-02] MEDS ORDERED: VITA100T86 PO (17:53)
[2022-08-02] MEDS ORDERED: HOME MED LIST COMPLETE! XX SCH (17:55)
[2022-08-02 21:07] VITALS: BP 172/78
[2022-08-02] MEDS: TELMISARTAN 20 MG TAB PO SCH (22:01)
[2022-08-02] MEDS: METOPROLOL SUCC (TopROL XL) 50MG **XL** TAB PO SCH (22:01)
[2022-08-03 00:17] VITALS: BP 208/98
[2022-08-03] MEDS ORDERED: hydrALAZINE 20MG/ML 1ML VIAL IV ONE (00:40)
[2022-08-03 00:44] LABS: CK-MB VALUE MASS 2.2 NG/ML (<3.6)
[2022-08-03 00:45] LABS: MB/CK RELATIVE INDEX 2.26 (< OR =4)
[2022-08-03 01:13] VITALS: BP 173/79
[2022-08-03 03:24] VITALS: BP 153/70
[2022-08-03 07:23] LABS: BASO % 0.4 % (0.0-1.0); EOS % 0.3 % (0.0-3.0); HEMATOCRIT 40.8 % (36.0-47.0); HEMOGLOBIN 13.8 g/dl (12.0-15.5); LYMPH # 1.4 10^3/uL (1.5-5.0); LYMPH % 18.9 % (24.0-44.0); MEAN CORPUSCULAR HEMOGLOBIN 29.5 pg (27.0-33.0); MEAN CORPUSCULAR HGB CONC 33.8 g/dl (32.0-36.5); MEAN CORPUSCULAR VOLUME 87.2 fl (80.0-96.0); MONO # 0.4 10^3/uL (0.0-0.8); MONO % 5.5 % (2.0-8.0); NEUTROPHILS # 5.6 10^3/uL (1.5-8.5); NEUTROPHILS % 74.8 % (36.0-66.0); PLATELET COUNT, AUTOMATED 231 10^3/uL (150-450); RED BLOOD COUNT 4.68 10^6/uL (4.00-5.40); WHITE BLOOD COUNT 7.5 10^3/uL (4.0-10.0)
[2022-08-03 07:49] LABS: CK-MB VALUE MASS 2.4 NG/ML (<3.6)
[2022-08-03 07:50] LABS: ALBUMIN 3.5 G/DL (3.2-5.2); ALKALINE PHOSPHATASE 80 U/L (46-116); ALT/SGPT 41 U/L (7.0-40); AST/SGOT 36 U/L (<34); BILIRUBIN,TOTAL 1.8 MG/DL (0.3-1.2); BLOOD UREA NITROGEN 13 MG/DL (9-23); CALCIUM LEVEL 8.4 MG/DL (8.3-10.6); CARBON DIOXIDE LEVEL 25 MMOL/L (20-31); CHLORIDE LEVEL 108 MMOL/L (98-107); CREATININE FOR GFR 0.73 MG/DL (0.55-1.30); GLOMERULAR FILTRATION RATE > 60.0 (>39); GLUCOSE, FASTING 101 MG/DL (74-106); MAGNESIUM LEVEL 1.9 MG/DL (1.8-2.4); POTASSIUM SERUM 3.7 MMOL/L (3.5-5.1); SODIUM LEVEL 140 MMOL/L (136-145); TOTAL PROTEIN 6.2 G/DL (5.7-8.2)
[2022-08-03 08:00] VITALS: BP 165/76
[2022-08-03 08:05] LABS: MB/CK RELATIVE INDEX 2.47 (< OR =4)
[2022-08-03] MEDS ORDERED: ZINC SULFATE 220 MG CAP PO SCH (09:00)
[2022-08-03] MEDS ORDERED: OMEGA-3 1000MG CAPSULE PO SCH (09:00)
[2022-08-03] MEDS ORDERED: ISOSORBIDE MON. (IMDUR) 30MG XR TAB PO SCH (09:00)
[2022-08-03] MEDS ORDERED: CO-ENZYME Q10 50 MG CAP PO SCH (09:00)
[2022-08-03] MEDS ORDERED: PYRIDOXINE 50 MG TAB PO SCH (09:00)
[2022-08-03] MEDS ORDERED: MAGNESIUM GLUCONATE 500 MG TAB PO SCH (09:00)
[2022-08-03 09:39] VITALS: BP 165/76
[2022-08-03] MEDS: METOPROLOL SUCC (TopROL XL) 50MG **XL** TAB PO SCH (09:39)
[2022-08-03] MEDS: TELMISARTAN 20 MG TAB PO SCH (09:39)
[2022-08-03 12:00] VITALS: BP 119/56
[2022-08-03] MEDS ORDERED: ASPI81TA26 PO (13:38)
[2022-08-03] MEDS ORDERED: TELM1TAB33 PO (13:38)
[2022-08-03] MEDS ORDERED: PREVNAR-20 VACCINE 0.5ML SYRINGE IM.IMMUN ONE (15:00)
== END 2022-08-03 15:56 | disposition home or self-care (01) | DRG 281 ==
LOC: M ED 10:46 → EDBD 10:46 → M ED INP 17:39 → M PCU 20:57
PROVIDERS: ADMIT Family Medicine; ATTEND Family Medicine
DX: I21.4 Non-ST elevation (NSTEMI) myocardial infarction (principal); I16.9 Hypertensive crisis, unspecified; I48.91 Unspecified atrial fibrillation; I10 Essential (primary) hypertension; Z91.128 Patient's intentional underdosing of medication regimen for other reason; Z88.2 Allergy status to sulfonamides; Z91.041 Radiographic dye allergy status; Z91.040 Latex allergy status; Z88.8 Allergy status to other drugs, medicaments and biological substances; Z79.899 Other long term (current) drug therapy; Z79.82 Long term (current) use of aspirin; Z79.01 Long term (current) use of anticoagulants; E78.5 Hyperlipidemia, unspecified; Z86.73 Personal history of transient ischemic attack (TIA), and cerebral infarction without residual deficits

== ENCOUNTER → 2022-09-02 | Outpatient (CLI) | payer MEDICARE, OTHER ==
[~2022-09-02] MED LIST changes: +ALPH600C PO; +ASPI81TA26 PO; +B-650TAB2 PO; +BETA1TAB PO; +COEN100T PO; +CRAN400C PO; +GNP250TA9 PO; +IRON325T2 PO; +KP BTAB PO; +MAGN500T6 PO; +OMEG10002 PO; +REDCAP4 PO; +TELM1TAB33 PO; +VITA100T86 PO; +ZINC220CA PO
== END ==
LOC: M RAD 10:01
PROVIDERS: ATTEND Nurse Practitioner Family
DX: R14.0 Abdominal distension (gaseous) (principal); R10.32 Left lower quadrant pain

== ENCOUNTER 2022-10-07 20:55 | Emergency (ER) | payer MEDICARE, OTHER ==
[~2022-10-07] VITALS: Ht 165.1 cm; Wt 67.8 kg
[2022-10-07 20:57] VITALS: TEMP 97.7
[2022-10-07] MEDS ORDERED: OCUV1CAP4 PO (21:11)
[2022-10-07 23:35] VITALS: BP 224/108; O2SAT 97
== END 2022-10-07 23:39 | disposition left against medical advice (07) ==
LOC: M ED 20:55
DX: L76.22 Postprocedural hemorrhage of skin and subcutaneous tissue following other procedure (principal); I16.0 Hypertensive urgency; E78.5 Hyperlipidemia, unspecified; I10 Essential (primary) hypertension; Z86.73 Personal history of transient ischemic attack (TIA), and cerebral infarction without residual deficits; Z86.79 Personal history of other diseases of the circulatory system; Z88.2 Allergy status to sulfonamides; Z91.041 Radiographic dye allergy status; Z91.040 Latex allergy status; Z53.9 Procedure and treatment not carried out, unspecified reason

== ENCOUNTER → 2023-06-09 | Outpatient (CLI) | payer MEDICARE, OTHER ==
[~2023-06-09] MED LIST changes: +HYDR-161 PO; -HYDR10TAB PO; +OCUV1CAP4 PO
== END ==
LOC: M PLAIMG 10:38
PROVIDERS: ATTEND Registered Nurse
DX: J20.9 Acute bronchitis, unspecified (principal); I51.7 Cardiomegaly

== ENCOUNTER 2023-09-08 19:09 | Emergency (ER) | payer MEDICARE, OTHER ==
[~2023-09-08] VITALS: Ht 162.6 cm; Wt 68.0 kg
[~2023-09-08 19:09] MED LIST changes: +COD1CAPS3 PO; -CODCAP5 PO
[2023-09-08] MEDS ORDERED: MICA5TAB (19:49)
[2023-09-08] MEDS: hydrALAZINE 20MG/ML 1ML VIAL IV STA (20:18)
[2023-09-08 20:28] LABS: BASO % 0.5 % (0.0-1.0); EOS % 0.7 % (0.0-3.0); HEMATOCRIT 40.4 % (36.0-47.0); HEMOGLOBIN 13.7 g/dl (12.0-15.5); LYMPH # 1.8 10^3/uL (1.5-5.0); LYMPH % 32.1 % (24.0-44.0); MEAN CORPUSCULAR HEMOGLOBIN 29.3 pg (27.0-33.0); MEAN CORPUSCULAR HGB CONC 33.9 g/dl (32.0-36.5); MEAN CORPUSCULAR VOLUME 86.5 fl (80.0-96.0); MONO # 0.4 10^3/uL (0.0-0.8); MONO % 7.6 % (2.0-8.0); NEUTROPHILS # 3.3 10^3/uL (1.5-8.5); NEUTROPHILS % 58.9 % (36.0-66.0); PLATELET COUNT, AUTOMATED 215 10^3/uL (150-450); RED BLOOD COUNT 4.67 10^6/uL (4.00-5.40); WHITE BLOOD COUNT 5.5 10^3/uL (4.0-10.0)
[2023-09-08 20:38] LABS: INR 2.32; PROTHROMBIN TIME 24.6 SECONDS (12.5-14.5)
[2023-09-08] MEDS: TELMISARTAN 20 MG TAB PO STA (20:45)
[2023-09-08] MEDS: METOPROLOL SUCC (TopROL XL) 50MG **XL** TAB PO ONE (20:45)
[2023-09-08 20:52] LABS: BLOOD UREA NITROGEN 17 MG/DL (9-23); CARBON DIOXIDE LEVEL 28 MMOL/L (20-31); CHLORIDE LEVEL 108 MMOL/L (98-107); CREATININE FOR GFR 0.88 MG/DL (0.55-1.30); GLOMERULAR FILTRATION RATE > 60.0 (>39); GLUCOSE, FASTING 100 MG/DL (74-106); SODIUM LEVEL 142 MMOL/L (136-145)
[2023-09-08] MEDS: LIDOCAINE 2% W/ EPINEPHRINE 1.7 ML DENTAL INJ SM ONE (22:12)
[2023-09-08] MEDS: THROMBIN 5,000 UNITS VIAL TOP ONE (22:12)
[2023-09-08 23:00] VITALS: TEMP 98.2
[2023-09-08 23:45] VITALS: BP 147/69; O2SAT 97
== END 2023-09-09 00:08 | disposition home or self-care (01) ==
LOC: M ED 19:09
DX: L76.22 Postprocedural hemorrhage of skin and subcutaneous tissue following other procedure (principal); I10 Essential (primary) hypertension; Z86.79 Personal history of other diseases of the circulatory system; Z88.2 Allergy status to sulfonamides; Z91.040 Latex allergy status; Z91.041 Radiographic dye allergy status; Z79.811 Long term (current) use of aromatase inhibitors; Z79.899 Other long term (current) drug therapy; Z79.82 Long term (current) use of aspirin; Z79.01 Long term (current) use of anticoagulants
CPT/HCPCS: 80048; 85025; 85610; 96374; 99284; J0360

== ENCOUNTER → 2023-09-27 | Outpatient (CLI) | payer MEDICARE, OTHER ==
[~2023-09-27] MED LIST changes: -CRAN400C PO; +CRANBERRY400 MG PO; +MICA5TAB
[2023-09-27 12:25] LABS: BASO % 0.4 % (0.0-1.0); EOS % 0.7 % (0.0-3.0); HEMATOCRIT 42.7 % (36.0-47.0); HEMOGLOBIN 14.4 g/dl (12.0-15.5); LYMPH # 1.7 10^3/uL (1.5-5.0); LYMPH % 30.1 % (24.0-44.0); MEAN CORPUSCULAR HEMOGLOBIN 29.2 pg (27.0-33.0); MEAN CORPUSCULAR HGB CONC 33.7 g/dl (32.0-36.5); MEAN CORPUSCULAR VOLUME 86.6 fl (80.0-96.0); MONO # 0.4 10^3/uL (0.0-0.8); MONO % 6.2 % (2.0-8.0); NEUTROPHILS # 3.6 10^3/uL (1.5-8.5); NEUTROPHILS % 62.2 % (36.0-66.0); PLATELET COUNT, AUTOMATED 231 10^3/uL (150-450); RED BLOOD COUNT 4.93 10^6/uL (4.00-5.40); WHITE BLOOD COUNT 5.7 10^3/uL (4.0-10.0)
[2023-09-27 12:53] LABS: ALBUMIN 3.8 G/DL (3.2-5.2); BILIRUBIN,TOTAL 0.9 MG/DL (0.3-1.2); CALCIUM LEVEL 9.4 MG/DL (8.3-10.6); CHOLESTEROL RISK RATIO 5.35 (<5); CREATININE FOR GFR 0.96 MG/DL (0.55-1.30); HDL CHOLESTEROL 46.3 MG/DL (>40); LDL CHOLESTEROL 168.5 MG/DL (<100); NON-HDL-C 201.7 MG/DL; POTASSIUM SERUM 4.4 MMOL/L (3.5-5.1); TOTAL PROTEIN 6.8 G/DL (5.7-8.2)
== END ==
LOC: M PLALAB 11:09 → M LAB 11:09
PROVIDERS: ATTEND Family Medicine
DX: I11.9 Hypertensive heart disease without heart failure (principal)

== ENCOUNTER → 2024-10-16 | Outpatient (CLI) | payer MEDICARE, OTHER ==
[~2024-10-16] MED LIST changes: -ALPH600C PO; +ALPH600C2 PO; -SUCR1ORA2 PO; +SUCR1ORA20 PO
[2024-10-16 13:59] LABS: BASO # 0.0 10^3/uL (0.0-0.2); BASO % 0.5 % (0.0-1.0); EOS # 0.0 10^3/uL (0.0-0.5); EOS % 0.7 % (0.0-3.0); LYMPH # 1.8 10^3/uL (1.5-5.0); LYMPH % 29.3 % (24.0-44.0); MONO # 0.4 10^3/uL (0.0-0.8); MONO % 6.0 % (2.0-8.0); NEUTROPHILS # 3.8 10^3/uL (1.5-8.5); NEUTROPHILS % 63.3 % (36.0-66.0); PLATELET COUNT, AUTOMATED 214 10^3/uL (150-450)
[2024-10-16 14:00] LABS: ALT/SGPT 29.0 U/L (7.0-40); AST/SGOT 25.0 U/L (<34); CALCIUM LEVEL 9.4 MG/DL (8.3-10.6); CARBON DIOXIDE LEVEL 28.0 MMOL/L (20-31); CHLORIDE LEVEL 106.0 MMOL/L (98-107); CHOLESTEROL LEVEL 236.0 MG/DL (<200); CHOLESTEROL RISK RATIO 4.78 (<5); CREATININE FOR GFR 0.92 MG/DL (0.55-1.30); GLOMERULAR FILTRATION RATE 63.7 (>39); LDL CHOLESTEROL 165.5 MG/DL (<100); NON-HDL-C 186.7 MG/DL; POTASSIUM SERUM 4.3 MMOL/L (3.5-5.1); SODIUM LEVEL 144.0 MMOL/L (136-145); TRIGLYCERIDES LEVEL 106.0 MG/DL (<150)
== END ==
LOC: M PLALAB 08:50
PROVIDERS: ATTEND Family Medicine
DX: I11.9 Hypertensive heart disease without heart failure (principal)

== ENCOUNTER 2025-02-24 06:15 | Emergency (ER) | payer MEDICARE, OTHER ==
[~2025-02-24] VITALS: Ht 172.7 cm; Wt 68.5 kg
[2025-02-24 06:40] VITALS: TEMP 98.1
[2025-02-24 06:55] LABS: BASO # 0.0 10^3/uL (0.0-0.2); BASO % 0.3 % (0.0-1.0); EOS # 0.0 10^3/uL (0.0-0.5); EOS % 0.3 % (0.0-3.0); LYMPH # 1.3 10^3/uL (1.5-5.0); LYMPH % 15.2 % (24.0-44.0); MONO # 0.5 10^3/uL (0.0-0.8); MONO % 5.2 % (2.0-8.0); NEUTROPHILS # 6.7 10^3/uL (1.5-8.5); NEUTROPHILS % 78.7 % (36.0-66.0); PLATELET COUNT, AUTOMATED 225 10^3/uL (150-450)
[2025-02-24 07:15] LABS: INR 2.25
[2025-02-24 07:17] LABS: CK-MB VALUE MASS 3.1 NG/ML (<3.6); MAGNESIUM LEVEL 2.2 MG/DL (1.8-2.4)
[2025-02-24 07:20] LABS: ALT/SGPT 36.0 U/L (7.0-40); AST/SGOT 40.0 U/L (<34); CALCIUM LEVEL 8.6 MG/DL (8.3-10.6); CARBON DIOXIDE LEVEL 24.0 MMOL/L (20-31); CHLORIDE LEVEL 108.0 MMOL/L (98-107); CREATININE FOR GFR 0.9 MG/DL (0.55-1.30); GLOMERULAR FILTRATION RATE 65.4 (>39); POTASSIUM SERUM 4.4 MMOL/L (3.5-5.1); SODIUM LEVEL 142.0 MMOL/L (136-145)
[2025-02-24 07:21] LABS: CPK CREATINE PHOSPHOKINASE 88.0 U/L (34-145); MB/CK RELATIVE INDEX 3.52 (< OR =4)
[2025-02-24 07:22] LABS: FREE T4 1.41 NG/DL (0.89-1.76)
[2025-02-24] MEDS: NITROGLYCERIN 2% OINT 1 GM *U/D* PKT TOP ONE (08:09)
[2025-02-24 08:19] LABS: CK-MB VALUE MASS 3.9 NG/ML (<3.6)
[2025-02-24 08:22] LABS: CPK CREATINE PHOSPHOKINASE 87.0 U/L (34-145); MB/CK RELATIVE INDEX 4.48 (< OR =4)
[2025-02-24 09:00] VITALS: BP 203/100; O2SAT 89
[2025-02-24] MEDS: NITROGLYCERIN/D5W 100MCG/ML 25 MG in IV 1 EA IV SCH (09:15)
[2025-02-24 09:19] VITALS: BP 200/102
[2025-02-24] MEDS: FUROSEMIDE 20 MG/2 ML VIAL IV ONE (09:19)
[2025-02-24] MEDS: ASPIRIN 81 MG CHEWABLE TABLET PO ONE (09:19)
== END 2025-02-24 09:36 | disposition short-term general hospital (02) ==
LOC: M ED 06:15
DX: I21.4 Non-ST elevation (NSTEMI) myocardial infarction (principal); R06.02 Shortness of breath; I10 Essential (primary) hypertension; I48.91 Unspecified atrial fibrillation; E78.5 Hyperlipidemia, unspecified; F41.9 Anxiety disorder, unspecified; Z86.79 Personal history of other diseases of the circulatory system; Z90.49 Acquired absence of other specified parts of digestive tract; Z91.041 Radiographic dye allergy status; Z91.040 Latex allergy status; Z88.2 Allergy status to sulfonamides; Z88.8 Allergy status to other drugs, medicaments and biological substances; Z79.899 Other long term (current) drug therapy; Z79.01 Long term (current) use of anticoagulants
CPT/HCPCS: 71045; 80053; 82248; 82550; 82553; 83690; 83735; 83880; 84145; 84439; 84443; 84484; 85025; 85610; 87486; 87581; 87633; 87798; 93005; 93041; 94760; 96365; 96375; 99285; J1938; J2305

== ENCOUNTER 2025-04-05 05:34 | Inpatient (IN) | payer MEDICARE, OTHER ==
[~2025-04-05] VITALS: Ht 160 cm; Wt 65.4 kg
[2025-04-05] VITALS (9 sets, daily range): BP systolic 112–150; BP diastolic 56–90; TEMP 97.4–97.8; O2SAT 89–96
[~2025-04-05 05:34] MED LIST changes: -LABE100T6 PO; +LABE100T91 PO
[2025-04-05 06:29] LABS: BASO # 0.0 10^3/uL (0.0-0.2); BASO % 0.3 % (0.0-1.0); EOS # 0.0 10^3/uL (0.0-0.5); EOS % 0.3 % (0.0-3.0); LYMPH # 0.9 10^3/uL (1.5-5.0); LYMPH % 14.2 % (24.0-44.0); MONO # 0.4 10^3/uL (0.0-0.8); MONO % 7.2 % (2.0-8.0); NEUTROPHILS # 4.7 10^3/uL (1.5-8.5); NEUTROPHILS % 77.7 % (36.0-66.0); PLATELET COUNT, AUTOMATED 202 10^3/uL (150-450)
[2025-04-05 06:55] LABS: ALT/SGPT 38.0 U/L (7.0-40); AST/SGOT 38.0 U/L (<34); CALCIUM LEVEL 8.3 MG/DL (8.3-10.6); CARBON DIOXIDE LEVEL 23.0 MMOL/L (20-31); CHLORIDE LEVEL 106.0 MMOL/L (98-107); CREATININE FOR GFR 0.89 MG/DL (0.55-1.30); GLOMERULAR FILTRATION RATE 66.3 (>39); POTASSIUM SERUM 4.4 MMOL/L (3.5-5.1); SODIUM LEVEL 138.0 MMOL/L (136-145)
[2025-04-05 07:00] LABS: CK-MB VALUE MASS 1.3 NG/ML (<3.6)
[2025-04-05 07:03] LABS: CPK CREATINE PHOSPHOKINASE 70.0 U/L (34-145); MB/CK RELATIVE INDEX 1.85 (< OR =4)
[2025-04-05 07:23] LABS: VENOUS BASE EXCESS 0.5 (-2.0-2.0); VENOUS HCO3 23.7 MMOL/L (23.0-27.0); VENOUS O2 SATURATION 99.0 % (60.0-80.0); VENOUS PARTIAL PRESSURE CO2 33.6 mmHg (38.0-50.0); VENOUS PARTIAL PRESSURE O2 146.6 mmHg (30.0-50.0); VENOUS PH 7.467 UNITS (7.330-7.430); VENOUS STANDARD HCO3 25.0 MMOL/L; VENOUS TOTAL CO2 24.8 MMOL/L (24.0-28.0)
[2025-04-05 07:26] LABS: MAGNESIUM LEVEL 2.1 MG/DL (1.8-2.4)
[2025-04-05 07:55] LABS: CK-MB VALUE MASS 1.2 NG/ML (<3.6)
[2025-04-05 07:56] LABS: CPK CREATINE PHOSPHOKINASE 62.0 U/L (34-145); MB/CK RELATIVE INDEX 1.93 (< OR =4)
[2025-04-05 08:13] LABS: INR 1.95
[2025-04-05] MEDS: FUROSEMIDE 20 MG/2 ML VIAL IV ONE ×2 (09:47→15:40)
[2025-04-05] MEDS: IPRATROPIUM 0.5 MG/ALBUTEROL 2.5 MG INH SOL UD 3 ML NEB ONE (09:50)
[2025-04-05] MEDS ORDERED: CRAN400T3 PO (10:15)
[2025-04-05] MEDS ORDERED: CARV12.5 PO (10:15)
[2025-04-05] MEDS ORDERED: TELM1TAB33 PO (10:15)
[2025-04-05] MEDS ORDERED: PRES10CA2 PO (10:15)
[2025-04-05] MEDS ORDERED: HOME MED LIST COMPLETE! XX SCH ×2 (10:15→10:40)
[2025-04-05] MEDS ORDERED: OCUV1CAP4 PO (10:37)
[2025-04-05] MEDS ORDERED: [UNRECOGNIZED DRUG - CODE] PO (10:37)
[2025-04-05] MEDS ORDERED: SOUR400C PO (10:37)
[2025-04-05] MEDS ORDERED: D3 H2000 PO (10:37)
[2025-04-05] MEDS ORDERED: ASCO500T PO (10:37)
[2025-04-05] MEDS ORDERED: CO Q200C10 PO (10:37)
[2025-04-05] MEDS ORDERED: GARL200T2 PO (10:37)
[2025-04-05] MEDS ORDERED: [UNRECOGNIZED DRUG - CODE] PO (10:37)
[2025-04-05] MEDS ORDERED: BILB1CAP PO (10:37)
[2025-04-05] MEDS ORDERED: [UNRECOGNIZED DRUG - CODE] PO (10:37)
[2025-04-05] MEDS ORDERED: POTA99TA5 PO (10:37)
[2025-04-05] MEDS ORDERED: DIALTAB PO (10:37)
[2025-04-05] MEDS ORDERED: [UNRECOGNIZED DRUG - OTHER] PO (10:37)
[2025-04-05] MEDS ORDERED: TUMETAB PO (10:37)
[2025-04-05] MEDS ORDERED: ALPHTAB PO (10:37)
[2025-04-05] MEDS: cefTRIAXone SOD 1 GM in DEXTROSE 5% (D5W) ADV/MINI-BAG 50 ML IV ONE (10:45)
[2025-04-05] MEDS ORDERED: PILL CUTTER 1 EACH XX PRN (11:40)
[2025-04-05] MEDS: DOXYCYCLINE HYCLATE 100 MG in DEXTROSE 5% (D5W) MINI-BAG PLU 100 ML IV ONE (11:44)
[2025-04-05] MEDS: CLOPIDOGREL 75 MG TAB PO SCH (11:45)
[2025-04-05] MEDS: FERROUS SULFATE 325 MG TAB PO SCH (11:45)
[2025-04-05] MEDS: ISOSORBIDE MONONITRATE 30 MG XR TAB PO SCH (11:46)
[2025-04-05] MEDS: TELMISARTAN 20 MG TAB PO SCH (11:55)
[2025-04-05] MEDS: MAGNESIUM GLUCONATE 500 MG TAB PO SCH (11:55)
[2025-04-05] MEDS ORDERED: NITROGLYCERIN 0.4 MG SUBL TABLET SL PRN (12:05)
[2025-04-05] MEDS ORDERED: hydrALAZINE 20 MG/ML 1 ML VIAL IV PRN (12:15)
[2025-04-05] MEDS ORDERED: SPIR-10 PO (12:25)
[2025-04-05] MEDS: SPIRONOLACTONE 25 MG TAB PO SCH (12:51)
[2025-04-05] MEDS: FUROSEMIDE 20 MG TAB PO SCH (17:00)
[2025-04-05] MEDS: WARFARIN SOD 3MG TAB PO SCH (17:21)
[2025-04-05] MEDS: ATORVASTATIN 20 MG TAB PO SCH (20:31)
[2025-04-06] VITALS (19 sets, daily range): BP systolic 138–220; BP diastolic 72–118; TEMP 97.5–98; O2SAT 91–97
[2025-04-06] MEDS: BENZONATATE 100 MG CAPSULE PO PRN (01:55)
[2025-04-06 06:10] LABS: BASO # 0.0 10^3/uL (0.0-0.2); BASO % 0.0 % (0.0-1.0); EOS # 0.0 10^3/uL (0.0-0.5); EOS % 0.0 % (0.0-3.0); LYMPH # 0.7 10^3/uL (1.5-5.0); LYMPH % 7.8 % (24.0-44.0); MONO # 0.6 10^3/uL (0.0-0.8); MONO % 6.8 % (2.0-8.0); NEUTROPHILS # 7.2 10^3/uL (1.5-8.5); NEUTROPHILS % 84.9 % (36.0-66.0); PLATELET COUNT, AUTOMATED 234 10^3/uL (150-450)
[2025-04-06 06:39] LABS: ALT/SGPT 35.0 U/L (7.0-40); AST/SGOT 28.0 U/L (<34); CALCIUM LEVEL 8.7 MG/DL (8.3-10.6); CARBON DIOXIDE LEVEL 29.0 MMOL/L (20-31); CHLORIDE LEVEL 104.0 MMOL/L (98-107); CREATININE FOR GFR 0.88 MG/DL (0.55-1.30); GLOMERULAR FILTRATION RATE 67.2 (>39); MAGNESIUM LEVEL 2.2 MG/DL (1.8-2.4); POTASSIUM SERUM 3.7 MMOL/L (3.5-5.1); SODIUM LEVEL 142.0 MMOL/L (136-145)
[2025-04-06 06:42] LABS: INR 1.7
[2025-04-06] MEDS: POTASSIUM CHLORIDE 10MEQ SR TABLET PO SCH (07:59)
[2025-04-06] MEDS ORDERED: FURO20TA2 PO (13:17)
[2025-04-09] MEDS ORDERED: QUNO100C PO (13:41)
[2025-04-09] MEDS ORDERED: FURO20TA2 PO (13:41)
[2025-04-09] MEDS ORDERED: DOXY100T27 PO (13:41)
[2025-04-09] MEDS ORDERED: VENTAER INH (13:41)
[2025-04-10] MEDS ORDERED: WARFARIN SOD 3MG TAB PO SCH (17:00)
== END 2025-04-06 16:27 | disposition home or self-care (01) | DRG 304 ==
LOC: M ED 05:34 → M ED INP 05:35 → OBSVTOIN 11:57 → M PCU 13:28
PROVIDERS: ADMIT Student in an Organized Health Care Education/Training Program; ATTEND Student in an Organized Health Care Education/Training Program
DX: I16.0 Hypertensive urgency (principal); J96.01 Acute respiratory failure with hypoxia; J12.3 Human metapneumovirus pneumonia; Z91.148 Patient's other noncompliance with medication regimen for other reason; I48.91 Unspecified atrial fibrillation; D64.9 Anemia, unspecified; I25.10 Atherosclerotic heart disease of native coronary artery without angina pectoris; Z79.01 Long term (current) use of anticoagulants; I27.20 Pulmonary hypertension, unspecified; Z86.73 Personal history of transient ischemic attack (TIA), and cerebral infarction without residual deficits; F41.9 Anxiety disorder, unspecified; F39 Unspecified mood [affective] disorder; Z95.2 Presence of prosthetic heart valve; I50.9 Heart failure, unspecified; I25.2 Old myocardial infarction; E78.5 Hyperlipidemia, unspecified; Z79.899 Other long term (current) drug therapy; Z91.041 Radiographic dye allergy status; Z88.2 Allergy status to sulfonamides; Z91.040 Latex allergy status; Z88.8 Allergy status to other drugs, medicaments and biological substances